=== PATIENT | female | born 1950 | race Caucasian/White ===

== ENCOUNTER 2017-04-30 19:58 | Emergency (ER) | payer MEDICARE, BC ==
--- NOTE | 2017-04-30 20:27 | Emergency Department Record ---
History of Present Illness - General Chief Complaint: Back Pain/Injury Stated Complaint: BACK PAIN Time Seen by Provider: 04/30/17 20:12 Source: Patient, Family, EMS Mode of Arrival: Stretcher Limitations: No limitations - History of Present Illness Initial Comments: 67 yo female presents by EMS. She fell off the toilet on Tuesday and has not been able to get up since that time. She has been on the floor since that time. The was able initially drag her to the bedroom then eventually to the living room floor where she remained. She has been on the living room floor since that time. She initially was in too much pain now she is too weak as well. She has been urinating where she lays. She has been confused at times. She normally functions on her own, drives. She occasionally uses a cane for support. Complaint: Back pain, Fall -: Days(s) (4) Place: Home Radiation: None Severity: Severe Quality: Aching Consistency: Constant - Related Data Previous Rx's Medication Instructions Recorded Mupirocin [Bactroban] 1 apply TP TID #22 gm 09/23/14 Tetracycline HCl 500 mg PO TID #30 capsule 09/30/14 Doxycycline Hyclate [Vibramycin] 100 mg PO BID #20 capsule 10/01/14 Allergies Allergy/AdvReac Type Severity Reaction Status Date / Time Carbapenems Allergy Unknown RASH Verified 04/30/17 23:00 Carbonic Anhydrase Inhibitors Allergy Unknown RASH Verified 04/30/17 23:00 Cephalosporins Allergy Unknown RASH Verified 04/30/17 23:00 Penicillins Allergy Unknown HIVES Verified 04/30/17 23:00 Sulfa (Sulfonamide Allergy Unknown HIVES Verified 04/30/17 23:00 Antibiotics) sulfamethoxazole Allergy Unknown HIVES Verified 04/30/17 23:00 Sulfonylureas Allergy Unknown HIVES Verified 04/30/17 23:00 Thiazides Allergy Unknown HIVES Verified 04/30/17 23:00 trimethoprim Allergy Unknown HIVES Verified 04/30/17 23:00 acetaminophen [From Vicodin] Allergy HIVES Verified 04/30/17 23:00 codeine Allergy HIVES Verified 04/30/17 23:00 hydrocodone bitartrate Allergy HIVES Verified 04/30/17 23:00 [From Vicodin] Review of Systems Constitutional: Reports: Malaise, Weakness. Denies: Chills, Fever Eyes: Denies: Eye discharge, Eye pain, Photophobia, Vision change ENT: Denies: Congestion, Throat pain Respiratory: Denies: Cough, Dyspnea, Hemoptysis, Stridor, Wheezes Cardiovascular: Denies: Chest pain, Palpitations, Syncope Endocrine: Reports: Fatigue. Denies: Polydipsia, Polyuria Gastrointestinal: Denies: Abdominal pain, Diarrhea, Nausea, Vomiting Genitourinary: Reports: Incontinence. Denies: Dysuria, Frequency, Urgency Musculoskeletal: Reports: Arthralgia, Back pain, Myalgia. Denies: Joint swelling, Neck pain Skin: Reports: Bruising. Denies: Change in color, Rash Neurological: Reports: Abnormal gait (unable), Weakness. Denies: Headache Psychiatric: Denies: Anxiety Hematological/Lymphatic: Denies: Blood Clots, Easy bleeding, Easy bruising, Swollen glands Physical Exam - General General Appearance: Alert, Cooperative, No acute distress, Other (alert but slower to answer questions. no overt confusion. some memory lapses of the events) Limitations: No limitations - Head Head exam: Atraumatic, Normocephalic, Normal inspection Head exam detail: negative: Abrasion, Contusion, Hematoma, Laceration - Eye Eye exam: Normal appearance, PERRL. negative: Conjunctival injection, Scleral icterus - ENT ENT exam: Normal exam, Mucous membranes dry Ear exam: Normal external inspection Nasal Exam: Normal inspection Mouth exam: Normal external inspection Teeth exam: Normal inspection Throat exam: Normal inspection - Neck Neck exam: Normal inspection, Full ROM. negative: Tenderness - Respiratory Respiratory exam: Normal lung sounds bilaterally. negative: Respiratory distress, Rhonchi, Stridor, Wheezes - Cardiovascular Cardiovascular Exam: Regular rate, Normal rhythm, Normal heart sounds Peripheral Pulses: 2+: Radial (R), Radial (L) - GI/Abdominal GI/Abdominal exam: Soft. negative: Guarding, Rigid, Tenderness - Rectal Rectal exam: Deferred - exam: Deferred - Extremities Extremities exam: Normal inspection, Full ROM (global weakness), Normal capillary refill. negative: Calf tenderness, Joint swelling, Pedal edema - Back Back exam: Reports: Tenderness, Vertebral tenderness. Denies: Normal inspection , CVA tenderness (R), CVA tenderness (L), Muscle spasm, Paraspinal tenderness Image of Body Front/Back: 1 - bruising, tender - Neurological Neurological exam: Alert, CN II-XII intact, Oriented X3, Reflexes normal, Other (globally weak, unable to sit up, no PND of the upper extremities,, intact conductor/engineer , lower legs overcome gravity. clear speech, symmentric face.). negative: Altered, Motor sensory deficit, Normal gait (unable to sit up on her own too weak) - Psychiatric Psychiatric exam: Depressed. negative: Agitated, Anxious, Manic, Normal affect , Normal mood - Skin Skin exam: Other (bruising) Course - Reevaluation(s) Reevaluation #1: 04/30/17 20:52 EKG Atrial Fibrillation 129, intervals QTc 480, Dodge L, ST no acute changes. No history of AFIB. Prior EKG was NSR. 200504/30/17 20:55 04/30/17 22:02 The CBC was reviewed. No acute changes The CMP was reviewed. BUN is 26 CR is 1.3, GFR 43, Glucose 213, CK is 365 MB 11 Troponin is indeterminate at .033 UA spec gravity 1.030, protein and ketones. No infection 04/30/17 22:04 Current HR 114 Continue IV hydration. HR elevation improving with fluids. 04/30/17 23:20 The HCT and the Pelvic CT are negative Given the new onset afib she will be rate controlled and anticoagulated with no CT evidence for stroke and no physical examination findings for stroke. The patient requests [facility] for transfer 04/30/17 23:46 I GENA Kirkland. We were interrupted by an SALES INTERN on her end and will resume the transfer when she is available. 05/01/17 00:30 Dr Kirkland called back and accepts the patient Bed control NOW informs us there is not available bed at [facility] and they can not accept her. This was discussed with the patient. She agrees with contacting [facility] for transfer and care. 05/01/17 01:04 Kaiden Felder of [facility]. She accepts the patient for transfer and further case. 05/01/17 02:42 EMS in the ED for transfer. Stable for transfer. Medical Decision Making - Lab Data Result diagrams: 04/30/17 20:45 04/30/17 20:45 Disposition Disposition: Transfer Clinical Impression: Fall, Atrial fibrillation, Weakness, Dehydration Disposition: Acute Care Hospital Transfer Transfer To: [facility] Reason For Transfer: New Onset afib, fall Accepting Physician: Bradford Time Discussed w/Accepting Physician: 01:05 Condition: (2) Stable Forms: Patient Portal Access Time of Disposition: 01:05 Quality - Quality Measures Quality Measures: N/A - Blood Pressure Screening Does Patient Have Any of the Following: Active Dx of HTN Blood Pressure Classification: Hypertensive Reading Systolic Measurement: 155 Diastolic Measurement: 103 Screening for High Blood Pressure: Patient Exclusion, Hx of HTN [G9744]
[2017-04-30] MEDS ORDERED: 0.9 % SODIUM CHLORIDE 1,000 ML BAG IV ONE (20:48)
[2017-04-30 20:59] LABS: BASO % 0.2 % (0-6); EOS % 2.6 % (0-6); GRAN % 75.3 % (47-80); HEMATOCRIT 45.4 % (35.0-47.0); HEMOGLOBIN 15.6 gm/dl (11.6-16.0); MEAN CELL VOLUME 85.3 fl (81-97); MEAN CORPUSCULAR HEMOGLOBIN 29.3 pg (27-33); MEAN CORPUSCULAR HGB CONC 34.4 g/dl (32-36); MEAN PLATELET VOLUME 9.6 fl (7.4-10.4); MONO % 10.9 % (0-9); PLATELET COUNT 363 K/uL (130-400); RED BLOOD COUNT 5.32 M/uL (3.80-5.40); RED CELL DISTRIBUTION WIDTH 14.5 % (11.5-14.5); WHITE BLOOD COUNT W/O DIFF 11.9 K/uL (4.2-12.2)
[2017-04-30 21:08] LABS: BILIRUBIN,TOTAL 0.6 mg/dL (0.2-1.0); CREATININE 1.3 mg/dL (0.5-0.9); TOTAL PROTEIN 7.4 g/dL (6.6-8.7)
[2017-04-30 21:13] LABS: ALB/GLOB RATIO 1.1 (1.1-1.8); ALBUMIN 3.9 g/dL (4.0-5.0)
[2017-04-30 21:16] LABS: CKMB 11.9 ng/mL (<3.77)
[2017-04-30 21:24] LABS: THYROID STIMULATING HORMONE 2.44 uIU/mL (0.270-4.20)
[2017-04-30 21:24] LABS: URINE APPEARANCE CLEAR; URINE BILIRUBIN NEGATIVE (NEGATIVE); URINE BLOOD MODERATE (NEGATIVE); URINE COLOR YELLOW; URINE KETONE NEGATIVE (NEGATIVE); URINE LEUKOCYTE ESTERASE NEGATIVE (NEGATIVE); URINE NITRITE NEGATIVE (NEGATIVE); URINE UROBILINOGEN 0.2 E.U./dL (0.20 - 1.00)
[2017-04-30 21:45] LABS: URINE BACTERIA TRACE; URINE EPITHELIAL CELLS 0 - 2 (FEW); URINE WBC 0 - 2 (0-2/hpf)
[2017-04-30] MEDS ORDERED: 0.9 % SODIUM CHLORIDE 1000ML 1,000 ML IV ONE (23:07)
[2017-04-30] MEDS ORDERED: DILTIAZEM HCL 125 MG in 0.9 % SODIUM CHLORIDE 100ML 100 ML IV SCH (23:15)
[2017-04-30] MEDS ORDERED: HEPARIN SODIUM/D5W 25,000 UNITS/500 ML BAG IV SCH (23:45)
[2017-05-01 16:19] LABS: CKMB RELATIVE INDEX 3.3 % (0-4)
--- NOTE | 2017-05-02 19:39 | CT SCAN REPORT ---
EXAM: CT SCAN HEAD WO CONTRAST HISTORY: MULTIPLE RECENT FALLS. MIDLINE LOWER BACK PAIN. TECHNIQUE: Routine noncontrast CT examination of the head. COMPARISON: None. FINDINGS: The subarachnoid spaces are mildly dilated and the ventricles are near the upper limits of normal in size. Moderate diffuse periventricular and subcortical white matter lucencies are scattered within each cerebral hemisphere , relatively symmetrically distributed. These are nonspecific but likely areas of chronic small vessel ischemia. No abnormal extraaxial fluid collection is seen. No skull fracture is identified, nor is there cephalohematoma. The visualized paranasal sinuses and mastoid air cells are clear. The orbits as visualized are unremarkable. There is atherosclerotic calcification of the distal left vertebral artery. IMPRESSION: 1. NO CT EVIDENCE OF ACUTE MAJOR VESSEL INFARCT, INTRACRANIAL HEMORRHAGE, MASS , NOR SKULL FRACTURE. 2. GENERALIZED ATROPHY. 3. MODERATE, RELATIVELY DIFFUSE PERIVENTRICULAR AND SUBCORTICAL WHITE MATTER LUCENCIES IN EACH CEREBRAL HEMISPHERE. THESE ARE CONSISTENT WITH CHRONIC SMALL VESSEL ISCHEMIA. JOB NUMBER: [id number] MTDD
--- NOTE | 2017-05-02 19:52 | CT SCAN REPORT ---
EXAM: CT SCAN PELVIS WO CONTRAST HISTORY: MULTIPLE FALLS. INABILITY TO STAND. TECHNIQUE: Thin-collimation helical CT examination of the pelvis is performed without oral or intravenous contrast administration. COMPARISON: CT abdomen and pelvis with contrast dated 02/04/2008. FINDINGS: Diffuse osteopenia mildly limits evaluation. No definite acute fracture nor dislocation identified. Total right hip arthroplasty changes demonstrated with the prosthetic components, to the extent visualized, appearing well seated. There are degenerative changes of the sacroiliac joints and moderate degenerative changes of the lower lumbar spine. No abnormal subluxation. There are cysts suggested arising from the lower pole of the right kidney, incompletely imaged, with the largest measuring 2.7 cm. Additionally, there is a nodular structure incompletely imaged, also possibly arising from the lower pole of the right kidney having a density of 39 Hounsfield units. To the extent visualized this measures 13 mm and while likely a proteinaceous cyst, a solid lesion would be difficult to exclude. There are cystic structures within the adnexa. That on the right measures 3.7 x 3.9 cm and that on the left measures 2.4 x 3.8 cm. These cannot be further characterized and while likely benign cysts, cystic neoplasm cannot be excluded. There is likely a partially calcified fibroid in the anterior uterine fundus/ body. The urinary bladder is contracted around a Abarca catheter limiting its evaluation. There is diverticulosis of the visualized left colon without diverticulitis. IMPRESSION: 1. NO DEFINITE ACUTE FRACTURE NOR DISLOCATION. 2. TOTAL RIGHT HIP ARTHROPLASTY CHANGES. 3. URINARY BLADDER CONTRACTED AROUND A ABARCA CATHETER. 4. DEGENERATIVE CHANGES SCATTERED WITHIN THE LOWER LUMBAR SPINE AND SACROILIAC JOINTS, MOST PRONOUNCED AT THE LUMBOSACRAL JUNCTION, WHERE THEY ARE MODERATE IN DEGREE. 5. SINGLE CYSTIC STRUCTURES IN EACH ADNEXA, DISCUSSED ABOVE. 6. DIVERTICULOSIS OF THE DISTAL COLON WITHOUT EVIDENCE OF DIVERTICULITIS. 7. SEVERAL SMALL MASSES LIKELY ARISING FROM THE LOWER POLE OF THE RIGHT KIDNEY , INCOMPLETELY IMAGED. THE MAJORITY OF THESE ARE LIKELY CYSTS THOUGH THERE IS ONE STRUCTURE HAVING DENSITY GREATER THAN SIMPLE FLUID. A SMALL SOLID MASS WOULD BE DIFFICULT TO EXCLUDE THOUGH PROTEINACEOUS CYST IS MORE LIKELY. JOB NUMBER: [id number] [facility]
== END 2017-05-01 02:45 | disposition short-term general hospital (02) ==
LOC: ER 19:58
DX: I48.91 Unspecified atrial fibrillation (principal); R55 Syncope and collapse; E86.0 Dehydration; R53.1 Weakness; E11.9 Type 2 diabetes mellitus without complications; R41.0 Disorientation, unspecified; I10 Essential (primary) hypertension; Z79.84 Long term (current) use of oral hypoglycemic drugs; G89.11 Acute pain due to trauma; M54.5 Low back pain; W18.11XA Fall from or off toilet without subsequent striking against object, initial encounter; Y92.002 Bathroom of unspecified non-institutional (private) residence as the place of occurrence of the external cause
CPT/HCPCS: 70450; 72192; 80053; 81001; 82550; 82553; 84443; 84484; 85025; 93005; 93010; 96365; 96366; 96375; 99285; J7030

== ENCOUNTER 2017-09-13 14:00 | Emergency (ER) | payer MEDICARE ==
--- NOTE | 2017-09-13 14:09 | Emergency Department Record ---
History of Present Illness - General Stated Complaint: AFIB,SWOLLEN LEGS Time Seen by Provider: 09/13/17 14:01 Source: Patient, Family Mode of Arrival: Ambulatory Limitations: Altered mental status - History of Present Illness Initial Comments: 67 yo female presents with progressive weakness and confusion. She was evaluated in April after a fall and being on the floor for 4 days. She was found to be in atrial fibrillation at that time. She was initially transferred to [facility] and discharged to medical rehab. In the last few months her health has continued to decline. She has had increasing weakness, periods of confusion, leg swelling. She has seen her Physician Assistance once in follow up since the admission. Her activity is now limited to getting up out of a chair only. She is frequently confused about the day, her medications, or her circumstances. She has not seen a natural resources manager since [place]. MD Complaint: Altered mental status -: Month(s) Severity: Moderate Consistency: Constant Context: Change in medication, History of similar presentation Associated Symptoms: Other - [place] Coma Scale Eye Response: (4) Open spontaneously Motor Response: (6) Obeys commands - Related Data Home Medications Medication Instructions Recorded Confirmed Last Taken Apixaban [Eliquis] 5 mg PO DAILY 09/13/17 09/13/17 Unknown Fluoxetine HCl 20 mg PO DAILY 09/13/17 09/13/17 Unknown Hydroxyzine HCl 25 mg PO DAILY 09/13/17 09/13/17 Unknown Losartan Potassium 25 mg PO DAILY 09/13/17 09/13/17 Unknown Pantoprazole Sodium [Protonix] 40 mg PO DAILY 09/13/17 09/13/17 Unknown Sitagliptin Phos/Metformin HCl 50 mg PO DAILY 09/13/17 09/13/17 Unknown [Janumet 50-500 mg Tablet] Zolpidem Tartrate 5 mg PO DAILY 09/13/17 09/13/17 Unknown Previous Rx's Medication Instructions Recorded Clindamycin HCl 300 mg PO QID #28 capsule 09/13/17 Allergies Allergy/AdvReac Type Severity Reaction Status Date / Time Carbapenems Allergy Unknown RASH Verified 04/30/17 23:00 Carbonic Anhydrase Inhibitors Allergy Unknown RASH Verified 04/30/17 23:00 Cephalosporins Allergy Unknown RASH Verified 04/30/17 23:00 Penicillins Allergy Unknown HIVES Verified 04/30/17 23:00 Sulfa (Sulfonamide Allergy Unknown HIVES Verified 04/30/17 23:00 Antibiotics) sulfamethoxazole Allergy Unknown HIVES Verified 04/30/17 23:00 Sulfonylureas Allergy Unknown HIVES Verified 04/30/17 23:00 Thiazides Allergy Unknown HIVES Verified 04/30/17 23:00 trimethoprim Allergy Unknown HIVES Verified 04/30/17 23:00 acetaminophen [From Vicodin] Allergy HIVES Verified 04/30/17 23:00 codeine Allergy HIVES Verified 04/30/17 23:00 hydrocodone bitartrate Allergy HIVES Verified 04/30/17 23:00 [From Vicodin] Review of Systems Constitutional: Reports: Malaise, Weakness. Denies: Chills, Fever Eyes: Denies: Eye discharge, Eye pain, Photophobia, Vision change ENT: Denies: Congestion, Throat pain Respiratory: Denies: Cough, Dyspnea Cardiovascular: Reports: Dyspnea on exertion, Edema, Palpitations. Denies: Chest pain, Syncope Endocrine: Reports: Fatigue Gastrointestinal: Denies: Abdominal pain, Diarrhea, Nausea, Vomiting Musculoskeletal: Denies: Arthralgia, Gout, Joint swelling, Myalgia, Neck pain Skin: Denies: Bruising, Change in color, Rash Neurological: Reports: Weakness Psychiatric: Reports: Depression Hematological/Lymphatic: Denies: Easy bleeding, Easy bruising, Swollen glands Past Medical History - SOCIAL HISTORY Smoking Status: Never smoker Drug Use: None - RESPIRATORY Hx Respiratory Disorders: Yes Hx Asthma: Yes - CARDIOVASCULAR Hx Cardio Disorders: Yes Hx Hypertension: Yes Comment:: high cholesterol - NEURO Hx Neuro Disorders: No - GI Hx GI Disorders: Yes Hx Reflux: Yes - Hx Genitourinary Disorders: Yes Hx UTI: Yes - ENDOCRINE Hx Endocrine Disorders: Yes Hx Diabetes: Yes - PSYCH Hx Psych Problems: Yes Hx Anxiety: Yes Hx Depression: Yes - HEMATOLOGY/ONCOLOGY Hx Hematology/Oncology Disorders: No Physical Exam - General General Appearance: Alert, Oriented x3, Cooperative, No acute distress, Other ( Oriented without confusion at this time.) Limitations: No limitations - Head Head exam: Atraumatic, Normocephalic, Normal inspection - Eye Eye exam: Normal appearance, PERRL. negative: Conjunctival injection, Scleral icterus - ENT ENT exam: Normal exam Ear exam: Normal external inspection Nasal Exam: Normal inspection Mouth exam: Normal external inspection - Neck Neck exam: Normal inspection, Full ROM - Respiratory Respiratory exam: Normal lung sounds bilaterally. negative: Accessory muscle use, Respiratory distress, Rhonchi, Stridor, Wheezes - Cardiovascular Cardiovascular Exam: Regular rate, Normal rhythm, Normal heart sounds Peripheral Pulses: 2+: Radial (R), Radial (L) - GI/Abdominal GI/Abdominal exam: Soft. negative: Distended, Rebound, Rigid, Tenderness - Rectal Rectal exam: Deferred - exam: Deferred - Extremities Extremities exam: Normal inspection, Normal capillary refill, Other (few scabs with redness to he RLE) - Back Back exam: Reports: Normal inspection, Full ROM. Denies: Muscle spasm, Rash noted, Tenderness - Neurological Neurological exam: Alert, CN II-XII intact, Normal gait, Oriented X3. negative : Altered, Motor sensory deficit - Psychiatric Psychiatric exam: Normal affect, Normal mood - Skin Skin exam: Erythema Course - Reevaluation(s) Reevaluation #1: EKG #1: 1412 Rate: 58 Rhythm: Sinus [place]: Left Intervals: Normal ST segments: No acute changes, poor R wave progression 09/13/17 14:22 09/13/17 14:29 The CBC was reviewed. No acute changes. 09/13/17 15:36 The labs were reviewed CR is 1.5 with prior of 1.3 No other acute changes The HCT was reviewed No acute changes. Chronic changes. TSH is normal 09/13/17 16:19 The UA is normal Case Management is in the ED to assist in arranging resumption of physical therapy. The patient seems to mainly have a slow progressive loss of strength and function. She had done well inpatient rehab but steadily declined in the outpatient once this was stopped. She is fully oriented, alert, and unaltered during this ED visit. 09/13/17 16:33 The patient and family are comfortable with setting up outpatient physical therapy at [facility]. The patient request a [facility] natural resources manager. They were provided Dr Colin's contact information as he is in [place]. Medical Decision Making - Lab Data Result diagrams: 09/13/17 14:15 09/13/17 14:15 Disposition Disposition: Discharge Clinical Impression: Physical deconditioning Cellulitis Qualifiers: Site of cellulitis: extremity Laterality: right Disposition: Home, Self-Care Condition: (1) Good Instructions: Weakness (ED), Cellulitis (ED) Additional Instructions: Take the prescriptions provided today as directed. Call your family doctor. Call to schedule the next available appointment for a recheck. You will need close follow up with a family doctor over the next few weeks to months Return to ED if your symptoms worsen or if you have any new concerns. Review the final Emergency Record and test results with your doctor on follow up Prescriptions: Clindamycin HCl 300 mg PO QID #28 capsule Referrals: ANAMARIA CENTENO M.D. [MEDICAL DOCTOR] - Time of Disposition: 16:43 Quality - Quality Measures Quality Measures: N/A - Blood Pressure Screening Does Patient Have Any of the Following: Active Dx of HTN Blood Pressure Classification: Pre-Hypertensive BP Reading Systolic Measurement: 147 Diastolic Measurement: 89 Screening for High Blood Pressure: Patient Exclusion, Hx of HTN [G9744]
[2017-09-13 14:24] LABS: BASO % 0.2 % (0-6); EOS % 3.8 % (0-6); GRAN % 69.9 % (47-80); HEMOGLOBIN 13.4 gm/dl (11.6-16.0); LYMPH % 14.1 % (16-45); MEAN CELL VOLUME 81.8 fl (81-97); MEAN CORPUSCULAR HEMOGLOBIN 26.7 pg (27-33); MEAN CORPUSCULAR HGB CONC 32.7 g/dl (32-36); MEAN PLATELET VOLUME 9.2 fl (7.4-10.4); PLATELET COUNT 289 K/uL (130-400); RED BLOOD COUNT 5.01 M/uL (3.80-5.40); RED CELL DISTRIBUTION WIDTH 16.8 % (11.5-14.5); WHITE BLOOD COUNT W/O DIFF 6.5 K/uL (4.2-12.2)
[2017-09-13] MEDS ORDERED: SODIUM CHLORIDE 0.9% 500 ML IV ONE (14:45)
[2017-09-13 14:48] LABS: BLOOD UREA NITROGEN 17 mg/dL (8-23); CREATININE 1.5 mg/dL (0.5-0.9); EST GLOMERULAR FILTRATION RATE 37 mL/min; TOTAL PROTEIN 7.4 g/dL (6.6-8.7)
[2017-09-13 14:50] LABS: GLUCOSE,RANDOM 176 mg/dL (74-109)
[2017-09-13 14:53] LABS: ALB/GLOB RATIO 1.2 (1.1-1.8); ALBUMIN 4.1 g/dL (4.0-5.0); ALKALINE PHOSPHATASE 106 U/L (35-104); ALT/SGPT 16 U/L (<33); AST/SGOT 20 U/L (10.0-35.0)
[2017-09-13 15:05] LABS: THYROID STIMULATING HORMONE 1.28 uIU/mL (0.270-4.20)
[2017-09-13 16:01] LABS: URINE APPEARANCE CLEAR; URINE BILIRUBIN NEGATIVE (NEGATIVE); URINE BLOOD NEGATIVE (NEGATIVE); URINE COLOR YELLOW; URINE GLUCOSE (UA) NEGATIVE (NEGATIVE); URINE KETONE NEGATIVE (NEGATIVE); URINE LEUKOCYTE ESTERASE NEGATIVE (NEGATIVE); URINE NITRITE NEGATIVE (NEGATIVE); URINE PROTEIN NEGATIVE (NEGATIVE); URINE UROBILINOGEN 0.2 E.U./dL (0.20 - 1.00)
--- NOTE | 2017-09-14 09:23 | CT SCAN REPORT ---
EXAM: CT OF THE HEAD WITHOUT CONTRAST HISTORY: WORSENING CONFUSION. ATRIAL FIBRILLATION. TECHNIQUE: Routine noncontrast CT examination of the head was performed. Comparison: CT of the head without contrast dated 04/30/17. FINDINGS: There is minor age related atrophy. The ventricles are not enlarged. Moderate periventricular and subcortical white matter lucencies are again noted scattered in each cerebral hemisphere relatively symmetrically. This pattern is unchanged. These are consistent with chronic small vessel ischemia. No new area of abnormally increased or decreased attenuation is noted throughout the brain substance. No new abnormal extraaxial fluid collection is seen. There is atherosclerosis of the distal left vertebral artery and distal internal carotid arteries, stable. No asymmetric density of the middle cerebral arteries. There is opacification of a single posterior right ethmoid air cell redemonstrated likely inflammatory. The visualized paranasal sinuses and mastoid air cells are otherwise clear. Prominent cerumen is suggested within the right external auditory canal. The orbits as visualized are unremarkable. There are likely tiny intraparotid lymph nodes bilaterally, stable. IMPRESSION: 1. NO CT EVIDENCE OF ACUTE MAJOR VESSEL INFARCT, INTRACRANIAL HEMORRHAGE, NOR MASS WITHOUT CHANGE IN APPEARANCE OF THE BRAIN SINCE 04/30/17. 2. AGE RELATED ATROPHY. MODERATE WHITE MATTER LUCENCIES SCATTERED IN EACH CEREBRAL HEMISPHERE REDEMONSTRATED CONSISTENT WITH CHRONIC SMALL VESSEL ISCHEMIA. 3. OPACIFICATION OF A SINGLE POSTERIOR RIGHT ETHMOID AIR CELL. [facility]BER: [id number] [facility]
== END 2017-09-13 17:08 | disposition home or self-care (01) ==
LOC: ER 14:00
DX: L03.115 Cellulitis of right lower limb (principal); R53.81 Other malaise; R41.82 Altered mental status, unspecified; I10 Essential (primary) hypertension; E11.9 Type 2 diabetes mellitus without complications; I48.91 Unspecified atrial fibrillation; Z79.01 Long term (current) use of anticoagulants; Z79.84 Long term (current) use of oral hypoglycemic drugs
CPT/HCPCS: 70450; 80053; 81003; 83735; 83880; 84443; 84484; 85025; 93005; 93010; 99284

== ENCOUNTER 2017-09-22 16:55 | Observation (INO) | payer MEDICARE ==
--- NOTE | 2017-09-22 17:12 | Emergency Department Record ---
History of Present Illness - General Chief complaint: Weakness Stated complaint: WEAK,CONFUSION,A-FIB Time Seen by Provider: 09/22/17 17:09 Source: Patient, Family Mode of Arrival: Wheelchair Limitations: Other - History of Present Illness Initial comments: 67 yo female presents with generalized weakness that has persisted. She has gradually developed these symptoms over several months. She had atrial fibrillation in April with weakness and dehydration. She was admitted to the hospital and spent time in medical rehab. She had improved and eventually discharged home. She was doing well with ambulation. Over time this gradually reversed and she has declined with strength and activity. She is always weak, fatigued, and has had falls. She was seen in the ED on 09/13. Social work was contacted. She had home physical therapy requested. This has not started in the last 10 days and she has not seen her PCP in months. No fever. She did have a mild fall without any injury Tuesday. No headaches, no focal weakness, no vomiting. She states she is eating and drinking. MD Complaint: Generalized weakness -: Month(s) Location: Generalized Severity: Moderate Quality: Other Consistency: Constant Improves with: None Worsens with: Movement Context: Other Associated Symptoms: Other - [place] Coma Scale Eye Response: (4) Open spontaneously Motor Response: (6) Obeys commands Verbal Response: (5) Oriented Krista Total: 15 - Related Data Home Medications Medication Instructions Recorded Confirmed Last Taken Cyclobenzaprine HCl [Flexeril] 10 mg PO ASDIR PRN 09/22/17 09/22/17 Unknown Ferrous Sulfate [Feosol] 65 mg PO DAILY 09/22/17 09/22/17 Unknown Losartan Potassium 25 mg PO DAILY 09/22/17 09/22/17 Unknown Allergies Allergy/AdvReac Type Severity Reaction Status Date / Time Carbapenems Allergy Unknown RASH Verified 04/30/17 23:00 Carbonic Anhydrase Inhibitors Allergy Unknown RASH Verified 04/30/17 23:00 Cephalosporins Allergy Unknown RASH Verified 04/30/17 23:00 Penicillins Allergy Unknown HIVES Verified 04/30/17 23:00 Sulfa (Sulfonamide Allergy Unknown HIVES Verified 04/30/17 23:00 Antibiotics) sulfamethoxazole Allergy Unknown HIVES Verified 04/30/17 23:00 Sulfonylureas Allergy Unknown HIVES Verified 04/30/17 23:00 Thiazides Allergy Unknown HIVES Verified 04/30/17 23:00 trimethoprim Allergy Unknown HIVES Verified 04/30/17 23:00 acetaminophen [From Vicodin] Allergy HIVES Verified 04/30/17 23:00 codeine Allergy HIVES Verified 04/30/17 23:00 hydrocodone bitartrate Allergy HIVES Verified 04/30/17 23:00 [From Vicodin] Review of Systems Constitutional: Reports: Malaise, Weakness. Denies: Chills, Fever Eyes: Denies: Eye discharge, Eye pain, Photophobia, Vision change ENT: Denies: Congestion, Throat pain Respiratory: Denies: Cough, Dyspnea Cardiovascular: Denies: Chest pain, Palpitations, Syncope Endocrine: Reports: Fatigue. Denies: Polydipsia, Polyuria Gastrointestinal: Denies: Abdominal pain, Diarrhea, Nausea, Vomiting Genitourinary: Denies: Dysuria, Urgency Musculoskeletal: Denies: Arthralgia, Back pain, Joint swelling, Myalgia Skin: Denies: Bruising, Change in color, Rash Neurological: Reports: Abnormal gait, Confusion (At times falles asleep. At times looses track of conversation topic. She is fully alert and oriented at this time.), Weakness. Denies: Headache, Tingling Psychiatric: Denies: Anxiety Hematological/Lymphatic: Denies: Blood Clots, Easy bleeding, Easy bruising, Swollen glands Past Medical History - SOCIAL HISTORY Smoking Status: Never smoker Drug Use: None - RESPIRATORY Hx Respiratory Disorders: Yes Hx Asthma: Yes - CARDIOVASCULAR Hx Cardio Disorders: Yes Hx Hypertension: Yes Comment:: high cholesterol - NEURO Hx Neuro Disorders: No - GI Hx GI Disorders: Yes Hx Reflux: Yes - Hx Genitourinary Disorders: Yes Hx UTI: Yes - ENDOCRINE Hx Endocrine Disorders: Yes Hx Diabetes: Yes - PSYCH Hx Psych Problems: Yes Hx Anxiety: Yes Hx Depression: Yes - HEMATOLOGY/ONCOLOGY Hx Hematology/Oncology Disorders: No Physical Exam - General General Appearance: Alert, Oriented x3, Cooperative, No acute distress Limitations: No limitations - Head Head exam: Atraumatic, Normocephalic, Normal inspection Head exam detail: negative: Abrasion, Contusion, General tenderness, Hematoma, Laceration - Eye Eye exam: Normal appearance, PERRL. negative: Conjunctival injection, Scleral icterus - ENT ENT exam: Normal exam, Mucous membranes moist Ear exam: Normal external inspection Nasal Exam: Normal inspection Mouth exam: Normal external inspection - Neck Neck exam: Normal inspection - Respiratory Respiratory exam: Normal lung sounds bilaterally. negative: Respiratory distress - Cardiovascular Cardiovascular Exam: Regular rate, Normal rhythm, Normal heart sounds Peripheral Pulses: 2+: Radial (R), Radial (L) - GI/Abdominal GI/Abdominal exam: Soft. negative: Tenderness - Rectal Rectal exam: Deferred - exam: Deferred - Extremities Extremities exam: Normal inspection, Full ROM, Normal capillary refill. negative: Calf tenderness, Joint swelling, Tenderness - Back Back exam: Denies: CVA tenderness (R), CVA tenderness (L) - Neurological Neurological exam: Abnormal gait, Alert, CN II-XII intact, Oriented X3, Other ( She is alert, no current confusion, no focal weakness). negative: Altered, Motor sensory deficit, Normal gait - Psychiatric Psychiatric exam: Depressed, Flat affect. negative: Agitated, Anxious - Skin Skin exam: Dry, Intact, Normal color, Warm Course - Reevaluation(s) Reevaluation #1: EKG #1 1710 Rate 65 Rhythm Sinus Rena Lara Left Intervals Normal ST segments Normal No changes since 09/13/17 09/22/17 17:16 The vitals were reviewed No fever, tachycardia, or hypoxia. Mild elevation of BP 09/22/17 17:28 EMR reviewed. HCT on the was negative. No acute changes or head injury since then. They report continued physical decline. No PT was arranged and she has not seen her PCP. 09/22/17 17:34 The CBC was reviewed. No acute changes 09/22/17 17:34 09/22/17 18:09 CR is 1.6 Given her deconditioning, weakness, falls, I recommend admission, PT consult, IVF for dehydration, carotid dopplers, hold any medications that can cause AMS, sedation, weakness. 09/22/17 18:25 I discussed the case with Sanna Edwards. She will admit for further work up. Medical Decision Making - Lab Data Result diagrams: 09/22/17 17:15 09/22/17 17:15 Disposition Disposition: Admit Clinical Impression: Physical deconditioning, Confusion Disposition: Still a Patient at [facility] Decision to Admit: Admit from ER Decision to Admit Date: 09/22/17 Decision to Admit Time: 18:26 Condition: (2) Stable Forms: Patient Portal Access Time of Disposition: 18:55 Quality - Quality Measures Quality Measures: N/A - Blood Pressure Screening Does Patient Have Any of the Following: No Blood Pressure Classification: Pre-Hypertensive BP Reading Systolic Measurement: 134 Diastolic Measurement: 73 Screening for High Blood Pressure: < Pre-Hypertensive BP, F/U Documented > [ [id number]] Pre-Hypertensive Follow-up Interventions: Referral to alternative/primary care provider.
[2017-09-22 17:29] LABS: BASO % 0.3 % (0-6); GRAN % 68.5 % (47-80); HEMOGLOBIN 13.8 gm/dl (11.6-16.0); LYMPH % 15.8 % (16-45); MEAN CELL VOLUME 80.4 fl (81-97); MEAN CORPUSCULAR HEMOGLOBIN 25.8 pg (27-33); MEAN CORPUSCULAR HGB CONC 32.1 g/dl (32-36); MONO % 11.4 % (0-9); PLATELET COUNT 293 K/uL (130-400); RED BLOOD COUNT 5.35 M/uL (3.80-5.40); RED CELL DISTRIBUTION WIDTH 17.3 % (11.5-14.5); URINE APPEARANCE CLEAR; URINE BILIRUBIN NEGATIVE (NEGATIVE); URINE BLOOD TRACE-I (NEGATIVE); URINE COLOR YELLOW; URINE GLUCOSE (UA) NEGATIVE (NEGATIVE); URINE KETONE NEGATIVE (NEGATIVE); URINE LEUKOCYTE ESTERASE SMALL (NEGATIVE); URINE NITRITE NEGATIVE (NEGATIVE); URINE PROTEIN NEGATIVE (NEGATIVE); URINE UROBILINOGEN 0.2 E.U./dL (0.20 - 1.00); WHITE BLOOD COUNT W/O DIFF 6.2 K/uL (4.2-12.2)
[2017-09-22 17:43] LABS: BLOOD UREA NITROGEN 23 mg/dL (8-23); CREATININE 1.6 mg/dL (0.5-0.9); EST GLOMERULAR FILTRATION RATE 34 mL/min
[2017-09-22 17:44] LABS: TOTAL PROTEIN 7.5 g/dL (6.6-8.7)
[2017-09-22 17:45] LABS: URINE BACTERIA NONE SEEN; URINE EPITHELIAL CELLS 0 - 2 (FEW); URINE RBC 0 - 2 (NONE SEEN)
[2017-09-22 17:46] LABS: GLUCOSE,RANDOM 140 mg/dL (74-109)
[2017-09-22 17:48] LABS: ALT/SGPT 18 U/L (<33); AST/SGOT 24 U/L (10.0-35.0)
[2017-09-22 17:49] LABS: ALB/GLOB RATIO 1.3 (1.1-1.8); ALBUMIN 4.2 g/dL (4.0-5.0); ALKALINE PHOSPHATASE 95 U/L (35-104)
[2017-09-22 18:00] LABS: THYROID STIMULATING HORMONE 1.45 uIU/mL (0.270-4.20)
[2017-09-22] MEDS ORDERED: 0.9 % SODIUM CHLORIDE 1,000 ML BAG IV ONE (18:48)
[2017-09-22] MEDS ORDERED: ACETAMINOPHEN 500 MG TABLET PO PRN (20:18)
[2017-09-22] MEDS ORDERED: 0.9 % SODIUM CHLORIDE 1000ML 1,000 ML IV PRN (20:18)
[2017-09-22] MEDS ORDERED: PNEUM 13-VAL/PF 0.5 ML IM ONE (20:58)
[2017-09-23] MEDS: PANTOPRAZOLE SODIUM 40 MG TABLET PO SCH (06:01)
[2017-09-23 06:53] LABS: ALB/GLOB RATIO 1.1 (1.1-1.8); ALBUMIN 3.5 g/dL (4.0-5.0); BILIRUBIN,TOTAL 0.3 mg/dL (0.2-1.0); CREATININE 1.4 mg/dL (0.5-0.9); TOTAL PROTEIN 6.6 g/dL (6.6-8.7)
--- NOTE | 2017-09-23 07:16 | CT SCAN REPORT ---
EXAM: EMERGENCY HEAD CT HISTORY: WEAKNESS, FALLS. TECHNIQUE: Axial CT scan of the head was performed without IV contrast. Comparison: Head CT 09/13/17, Encounter: Initial. FINDINGS: No definite acute intracranial hemorrhage identified. No focal mass effect or midline shift apparent. Mild generalized atrophy. Chronic appearing deep white matter changes, nonspecific, but likely representing some chronic small vessel deep white ischemic disease. No definite acute infarct or intracranial mass lesion seen. Persistent opacification of a right ethmoid air cell posteriorly as before. No depressed calvarial fracture evident. IMPRESSION: 1. NO DEFINITE ACUTE INTRACRANIAL HEMORRHAGE OR FOCAL MASS EFFECT EVIDENT. 2. GENERALIZED ATROPHY WITH CHRONIC APPEARING DEEP WHITE MATTER CHANGES BEFORE. JOB NUMBER: [id number]
[2017-09-23] MEDS ORDERED: APIXABAN 5MG TABLET PO SCH (10:00)
[2017-09-23] MEDS ORDERED: METFORMIN HCL PO SCH (10:00)
[2017-09-23] MEDS ORDERED: ATORVASTATIN 20 MG TABLET PO SCH ×2 (10:00→22:00)
[2017-09-23] MEDS ORDERED: LOSARTAN POTASSIUM 25 MG TABLET PO SCH ×2 (10:00→22:00)
[2017-09-23] MEDS ORDERED: SITAGLIPTIN PHOS PO SCH (10:00)
[2017-09-23] MEDS ORDERED: FLUOXETINE HCL 20 MG CAPSULE PO SCH ×2 (10:00→22:00)
[2017-09-23] MEDS: FERROUS SULFATE 325 MG TAB PO SCH (10:08)
--- NOTE | 2017-09-23 10:15 | Rehab Evaluation ---
Patient Information - Patient Information Diagnosis: weakness, falls, deconditioning Ordered Treatment: PT Evaluate and Treat Status: Initial Evaluation History: Detail (The patient arrived in ED with complaints of weakness which has progressed since her Rehab stay in April. Patient reports she fell last Tuesday.) Past Medical/Surgical Hx: PAST MEDICAL/SURGICAL HISTORY Past Surgical History bialt knee replacement right hip replacement PMH - Respiratory Hx Respiratory Disorders Yes Hx Asthma Yes PMH - Cardiovascular Hx Cardiovascular Disorders Yes Hx Hypertension Yes Hx Irregular Heartbeat Yes: AFIB with RVR, Eliquis Comment: high cholesterol PMH - Neuro Hx Neurological Disorders No Hx Cerebrovascular Accident No Hx Dizziness Yes Hx Parkinson's Disease No Hx Seizures No Hx Speech Problem No Hx Syncope No Comment: tremors left hand, states memory loss frequently PMH - GI Hx Gastrointestinal Disorders Yes Hx Diverticulitis Yes Hx Gastrointestinal Bleed Yes: 04/2017 Hx Gastroesophageal Reflux Yes Hx Rectal Bleeding No Hx Ulcer Yes: 3 large ulcers Comment: Dr Valente GI PMH - Hx Genitourinary Disorders Yes Patient No Hx Urinary Tract Infection Yes: two in last two mos PMH - Endocrine Hx Endocrine Disorders Yes Hx Diabetes Yes: Type II Hx Thyroid Disease No PMH - Musculoskeletal Hx Arthritis Yes Hx Fibromyalgia Yes Hx Gout No PMH - Psych Hx Psychiatric Problems Yes Hx Anxiety Yes Hx Depression Yes Hx Suicide Attempt No Major Depressive Episode No Feelings of Hopelessness No PMH - Hematology/Oncology Hx Hematology/Oncology Yes Disorders Hx Anemia Yes Hx Cancer No Hx Unexplained Bleeding No Hx Blood Transfusion Reaction No Premorbid Status: Detail (The patient was requiring assist from with all housework, dressing and showering. Patient was ambulating with 2 wheeled walker within the last week due to complaints of weakness.) Social History: Detail (The patient lives with spouse in a 2 story house ( patient stays on main floor) with 3 steps at the enterance without railings. The patient's bathroom is equipped with a walk in shower with a small step to get into the shower and grab bars. The patient reports she has a shower seat but does not use it. The patient 's bathroom has an elevated toilet seat with grab bars. The patient has front wheeled walker, a 4 wheeled walker and a cane which she hasn't used in awhile.) Precautions: [place], Fall - Time With Patient Total Time Spent With Patient (Min): 30 Treatment Procedures: Detail (Initial Evaluation) Subjective Information - Subjective Information Per Patient (The merten has no current complaints of pain. The patient reports a history of R shoulder pain and lower back pain.) Objective Data - Mental Status Patient Orientation: Oriented x3 - Visual Perception Appears within normal limits for therapeutic activities - ROM Within normal limits (The patient's LE AROM is WFL. Refer to OT note for UE AROM.) - Strength/Tone Not within normal limits (The patient's bilateral hip strength is 4/5 in hip flexors and adductors and 4+/5 in hip abductors in a seated position, hip extensors were not tested but were functional, L knee extensors 4-/5 with pain complaints with resistance, R 4/5, knee flexors bilaterally 4-/5, ankle/toe musculature L 4-/5, R 4/5.) - Bed Mobility Independent (Indepent supine to and from sit transfer.) - Transfers Independent (The patient was independent with sit to and stand from bed with effort and verbal cues not to pull up on walker. The patient was independent with use of grab bar for sit to stand from low toilet seat.) - Balance Balance Sitting: Good Balance Standing: Poor (The patient scored 15/28 using the Tinetti Assessment Tool which is at the high risk for falling category.) - Sensation Intact - Gait Detail (The patient ambulated 3 feet without device with CG, slow hesistant steps and requested to hang onto IV. The patient ambulated with front wheeled walker 60 feet x 1 with CG for safety. The patient's gait pattern is characterized by wide base of support, decreased stride length bilaterally, L foot drag and increased toed out position bilaterally.) Therapy Assessment - Therapy Assessment Detail (The patient is independent with bed mobility and transfers with slowed/ gaurded movements at times. The patient also presents with decreased LE strength and decreased balance in standing. Due to patient's unsteady gait pattern use of front wheeled walker is recommended. The patient would benefit from ongoing PT to improve balance, increase LE strength to increased stability of gait and improve ability to complete prolonged physical activity. The patient would benefit from short term subacute rehab to return to previous functional level.) Problem List - Problem List Physical Therapy Problem List: Detail (1) Decreased LE strength L greater then R 2) Decreased balance as measured by the Tinetti Assessment Tool 3) Numerous Gait deviations included L foot drag which may be contributing to patient's frequent falls.) Goals - Goals Physical Therapy Goals: 1) Increase LE strength 1/3 muscle grade to increase stability of gait. 2) Improve balance to medium risk level using Tinetti Assessment Tool for fall prevention. 3) Instruct patient in fall prevention techniques in the home environment. 4) The patient will tolerate 30 minutes of physical activity with one rest period. Prognosis - Prognosis Moderate Plan - Plan Physical Therapy Plan: PT 1 time a day M-F while and inpatient at [facility] for gait training, LE strengthening, and balance exercises. Ongoing PT is recommended in either a subacute , home or outpatient setting.
--- NOTE | 2017-09-23 13:21 | History & Physical ---
History of Present Illness - Date of Service Date of Service for History & Physical: 09/23/17 - History of Present Illness Admitting Diagnosis: weakness, falls, deconditioning, confusion, dehydration, renal insuffiency History of Present Illness: Mrs. Pineda is a 67 year-old female who presented to the ED on with complaint of persistent generalized weakness. She has gradually developed these symptoms over several months. She had atrial fibrillation in April with weakness and dehydration. She was admitted to the hospital and spent time in medical rehab. She had improved and eventually discharged home. She was doing well with ambulation. Over time this gradually reversed and she has declined with strength and activity. She is always weak, fatigued, and has had falls. She was seen in the ED on 09/13. Social work was contacted. She had home physical therapy requested. This has not started in the last 10 days and she has not seen her PCP in months. No fever. She did have a mild fall without any injury Tuesday. No headaches, no focal weakness, no vomiting. She states she is eating and drinking. Her history includes: asthma, HL, GERD, several UTIs, Afib, fibro In the ED, labs were stable, vital signs showed mild elevation of BP. EKG showed NSR- rate 65, intervals normal, no ST changes. Head CT on 09/13 was negative for acute changes and pt. has not had a head injury since. UA did reveal small blood and trace leuks- sent for culture. Pt's family did report physical decline, PT was ordered but did not start yet, and pt. has not f/u with her PCP. Due to pt's deconditioning, weakness, and falls, she was admitted for IV hydration, PT consult, and carotid dopplers. Plan to hold all meds that can cause AMS, sedation, weakness. 09/23/17 1000: Pt. is sitting up in bed. She is alert and oriented, however, she seems to have difficulty with remembering her medications and health history. She states that she was treated twice recently for UTI, first with macrobid, then clindamycin. She states that she is still experiencing bladder spasms, urgency , and some pain with urination. She state that she has a history of several UTIs. Will plan to start cipro 500 bid for UTI. PT/OT eval was completed this morning. Carotid dopplers have been completed and the report is pending. Pt. is set to discharge to [facility] tomorrow at 3pm per business office assistant. Travel Screening - Travel/Exposure Within Last 30 Days Have you traveled within the last 30 days?: No - Travel/Exposure Within Last Year Have you traveled outside the [place] in the last year?: No - Additonal Travel Details Have you been exposed to anyone with a communicable illness?: No Review of Systems Constitutional: Reports: Malaise, Weakness. Denies: Chills, Fever Eyes: Denies: Eye discharge, Eye pain, Photophobia, Vision change ENT: Denies: Congestion, Throat pain Respiratory: Denies: Cough, Dyspnea Cardiovascular: Denies: Chest pain, Palpitations, Syncope Endocrine: Reports: Fatigue. Denies: Polydipsia, Polyuria Gastrointestinal: Denies: Abdominal pain, Diarrhea, Nausea, Vomiting Genitourinary: Reports: Dysuria, Frequency, Urgency Musculoskeletal: Denies: Arthralgia, Back pain, Joint swelling, Myalgia Skin: Denies: Bruising, Change in color, Rash Neurological: Reports: Abnormal gait, Confusion (At times falles asleep. At times looses track of conversation topic. She is fully alert and oriented at this time.), Weakness. Denies: Headache, Tingling Psychiatric: Denies: Anxiety Hematological/Lymphatic: Denies: Blood Clots, Easy bleeding, Easy bruising, Swollen glands Past Medical History - SOCIAL HISTORY Smoking Status: Never smoker Alcohol Use: None Drug Use: None - RESPIRATORY Hx Respiratory Disorders: Yes Hx Asthma: Yes - CARDIOVASCULAR Hx Cardio Disorders: Yes Hx Hypertension: Yes Hx Irregular Heartbeat: Yes (AFIB with RVR, Eliquis) Comment:: high cholesterol - NEURO Hx Neuro Disorders: No Hx CVA: No Hx Dizziness: Yes Hx Parkinson's Disease: No Hx Seizures: No Hx Speech Problem: No Comment:: tremors left hand, states memory loss frequently - GI Hx GI Disorders: Yes Hx Diverticulitis: Yes Hx GI Bleed: Yes (04/2017) Hx Reflux: Yes Hx Rectal Bleeding: No Hx Ulcer: Yes (3 large ulcers) Comment:: Dr Valente [facility] - Hx Genitourinary Disorders: Yes Hx UTI: Yes (two in last two mos) - ENDOCRINE Hx Endocrine Disorders: Yes Hx Diabetes: Yes (Type II) Hx Thyroid Disease: No - MUSCULOSKELETAL Hx Arthritis: Yes Hx Fibromyalgia: Yes Hx Gout: No - PSYCH Hx Psych Problems: Yes Hx Anxiety: Yes Hx Depression: Yes Hx Suicide Attempt: No Major Depressive Episode: No Feelings of Hopelessness: No - HEMATOLOGY/ONCOLOGY Hx Hematology/Oncology Disorders: Yes Hx Anemia: Yes Hx Cancer: No Hx Unexplained Bleeding: No Hx Blood Transfusions: Yes (04/2017 5 units) Hx Blood Transfusion Reaction: No Family Medical History Any Significant Family History?: Yes Hx Cancer: Mother, Brother/Sister Hx Heart Disease: Father, Mother Hx HTN: Father, Mother Hx Resp Disorders: Mother Hx Stroke: Father, Mother, Brother/Sister H&P Meds/Allergies - Allergies Allergies: Allergies Allergy/AdvReac Type Severity Reaction Status Date / Time Carbapenems Allergy Unknown RASH Verified 04/30/17 23:00 Carbonic Anhydrase Inhibitors Allergy Unknown RASH Verified 04/30/17 23:00 Cephalosporins Allergy Unknown RASH Verified 04/30/17 23:00 Penicillins Allergy Unknown HIVES Verified 04/30/17 23:00 Sulfa (Sulfonamide Allergy Unknown HIVES Verified 04/30/17 23:00 Antibiotics) sulfamethoxazole Allergy Unknown HIVES Verified 04/30/17 23:00 Sulfonylureas Allergy Unknown HIVES Verified 04/30/17 23:00 Thiazides Allergy Unknown HIVES Verified 04/30/17 23:00 trimethoprim Allergy Unknown HIVES Verified 04/30/17 23:00 acetaminophen [From Vicodin] Allergy HIVES Verified 04/30/17 23:00 codeine Allergy HIVES Verified 04/30/17 23:00 hydrocodone bitartrate Allergy HIVES Verified 04/30/17 23:00 [From Vicodin] - Home Medications Home Medications Medication Instructions Recorded Confirmed Last Taken Cyclobenzaprine HCl [Flexeril] 10 mg PO QHS PRN 09/22/17 09/22/17 09/21/17 Ferrous Sulfate [Feosol] 65 mg PO DAILY 09/22/17 09/22/17 09/22/17 - Active Medications Active Medications: Current Medications Acetaminophen (Tylenol 500mg Tab) 500 mg PO Q6H PRN PRN Reason: PAIN - MILD(1-4)/FEVER Last Admin: 09/23/17 06:00 Dose: 500 mg Apixaban (Eliquis) 5 mg PO DAILY [facility] Last Admin: 09/23/17 10:07 Dose: 5 mg Atorvastatin Calcium (Lipitor) 80 mg PO QHS [facility] Ciprofloxacin (Cipro) 500 mg PO Q12HR [facility] Stop: 09/29/17 22:01 Ferrous Sulfate (Iron) 325 mg PO DAILY [facility] Last Admin: 09/23/17 10:08 Dose: 325 mg Fluoxetine HCl (Prozac) 20 mg PO QHS [facility] Sodium Chloride () 1,000 mls @ 100 mls/hr IV .Q10H PRN PRN Reason: LARGE VOLUME IV Last Admin: 09/23/17 05:57 Dose: 100 mls/hr Losartan Potassium (Cozaar) 25 mg PO QHS [facility] Non-Formulary Medication (Sitagliptin Phos/Metformin Hcl [Janumet 50-500 Mg Tablet]) 50 mg PO DAILY [facility] Last Admin: 09/23/17 06:01 Dose: 40 mg Physical Exam - Vital Signs Vital Signs: Vital Signs - Last 24 Hrs Temp Pulse Pulse Resp BP Pulse Ox 09/23/17 10:05 97.8 F 62 18 154/86 96 09/23/17 09:00 56 L 09/23/17 06:00 97.7 F 64 16 149/83 97 09/22/17 20:25 77 12 09/22/17 20:18 98.0 F 60 17 143/71 98 09/22/17 20:00 97.7 F 61 16 144/70 98 09/22/17 18:32 62 20 134/73 96 09/22/17 17:12 97.9 F 68 18 144/83 95 - General General Appearance: Alert, Oriented x3, Cooperative, No acute distress Limitations: No limitations - Head Head exam: Atraumatic, Normocephalic, Normal inspection Head exam detail: negative: Abrasion, Contusion, General tenderness, Hematoma, Laceration - Eye Eye exam: Normal appearance, PERRL. negative: Conjunctival injection, Scleral icterus - ENT ENT exam: Normal exam, Mucous membranes moist Ear exam: Normal external inspection Nasal Exam: Normal inspection Mouth exam: Normal external inspection - Neck Neck exam: Normal inspection - Respiratory Respiratory exam: Normal lung sounds bilaterally. negative: Respiratory distress - Cardiovascular Cardiovascular Exam: Regular rate, Normal rhythm, Normal heart sounds Peripheral Pulses: 2+: Radial (R), Radial (L) - GI/Abdominal GI/Abdominal exam: Soft. negative: Tenderness - Rectal Rectal exam: Deferred - exam: Deferred - Extremities Extremities exam: Normal inspection, Full ROM, Normal capillary refill. negative: Calf tenderness, Joint swelling, Tenderness - Back Back exam: Denies: CVA tenderness (R), CVA tenderness (L) - Neurological Neurological exam: Abnormal gait, Alert, CN II-XII intact, Other (She is alert, no current confusion, no focal weakness). negative: Altered, Motor sensory deficit, Normal gait - Psychiatric Psychiatric exam: Depressed, Flat affect. negative: Agitated, Anxious - Skin Skin exam: Dry, Intact, Normal color, Warm Results - Labs Result Diagrams: 09/22/17 17:15 09/23/17 06:12 Labs Last 24 Hours: Laboratory Results - last 24 hr 09/22/17 09/22/17 09/22/17 17:15 17:15 17:15 WBC 6.2 RBC 5.35 Hgb 13.8 Hct 43.0 MCV 80.4 L MCH 25.8 L MCHC 32.1 RDW 17.3 H Plt Count 293 MPV 9.0 Gran % 68.5 Lymphocytes % 15.8 L Monocytes % 11.4 H Eosinophils % 4.0 Basophils % 0.3 Sodium 136 Potassium 4.6 H Chloride 100 Carbon Dioxide 24.0 Anion Gap 12.0 BUN 23 Creatinine 1.6 H Estimated GFR 34 Random Glucose 140 H Calcium 10.6 H Magnesium Total Bilirubin 0.30 AST 24 ALT 18 Alkaline Phosphatase 95 Troponin T < 0.010 Total Protein 7.5 Albumin 4.2 Globulin 3.3 Albumin/Globulin Ratio 1.3 TSH 1.45 Urine Color Yellow Urine Appearance Clear Urine pH 6.0 Ur Specific [place] <= 1.005 Urine Protein Negative Urine Glucose (UA) Negative Urine Ketones Negative Urine Blood Trace-i Urine Nitrite Negative Urine Bilirubin Negative Urine Urobilinogen 0.2 Ur Leukocyte Esterase Small H Urine RBC 0 - 2 Urine WBC 3 - 5 Ur Epithelial Cells 0 - 2 Urine Bacteria None seen 09/22/17 09/23/17 17:15 06:12 WBC RBC Hgb Hct MCV MCH MCHC RDW Plt Count MPV Gran % Lymphocytes % Monocytes % Eosinophils % Basophils % Sodium 138 Potassium 4.8 H Chloride 104 Carbon Dioxide 22.0 Anion Gap 12.0 BUN 20 Creatinine 1.4 H Estimated GFR 40 Random Glucose 93 Calcium 10.1 Magnesium 2.0 Total Bilirubin 0.30 AST 18 ALT 16 Alkaline Phosphatase 84 Troponin T Total Protein 6.6 Albumin 3.5 L Globulin 3.1 Albumin/Globulin Ratio 1.1 TSH Urine Color Urine Appearance Urine pH Ur Specific [place] Urine Protein Urine Glucose (UA) Urine Ketones Urine Blood Urine Nitrite Urine Bilirubin Urine Urobilinogen Ur Leukocyte Esterase Urine RBC Urine WBC Ur Epithelial Cells Urine Bacteria - Imaging and Cardiology CT scan - head Status: Report reviewed (atrophy, chronic white matter changes, no acute processes) VTE H&P Assessment - Risk for VTE Risk for VTE: Yes Risk Level: Moderate Risk Assessment Date: 09/23/17 Risk Assessment Time: 13:18 VTE Orders Placed or Will Be Placed: No VTE Reason for No Prophylaxis: Not Indicated (Pt. is on Eliquis) Plan - Detailed Diagnosis and Plan (1) Physical deconditioning Current Visit: Yes Status: Acute Base Code: R53.81 - OTHER MALAISE Comment : 09/23/17: -PT/OT evaluation today- decreased balance and LE strength, gait variations, recommended PT daily M-F -Casework in process of arranging [facility] upon discharge -Bed alarm, fall precautions, holding pt's home meds that may contibute to dizziness/falls- cyclobenazeprine, ambien, hydroxyzine (2) UTI (urinary tract infection) Current Visit: Yes Status: Acute Base Code: N39.0 - URINARY TRACT INFECTION , SITE NOT SPECIFIED Comment: 09/23/17: -UA in ED revealed trace blood and small leuks, pt. reports recurrent UTIs for 3 months- treated with macrobid and clindamycin -Start cipro 500mg bid for 7 days for UTI, likely complicated due to failed OP treatment -Urine was sent for culture (3) At risk for deep venous thrombosis Current Visit: Yes Status: Acute Base Code: Z91.89 - OTH PERSONAL RISK FACTORS, NOT ELSEWHERE CLASSIFIED Comment: 09/23/17: -Hx of afib, dx 3 months ago -Eliquis 5mg daily for anticoagulation (4) DNR (do not resuscitate) Current Visit: Yes Status: Acute Base Code: Z66 - DO NOT RESUSCITATE Comment: 09/23/17: -Pt. is a DNR
--- NOTE | 2017-09-23 13:50 | US CAROTID DOPPLER REPORT ---
EXAM: BILATERAL CAROTID DOPPLER ULTRASOUND HISTORY: CEREBROVASCULAR ACCIDENT. TECHNIQUE: Sonographic evaluation of the vasculature of the neck was performed with the addition of Doppler and spectral analysis. FINDINGS: No flow was identified in the right ICA. The common carotid artery peak systolic velocity is 41 cm/s. The ECA is 62 cm/s. The vertebral artery has antegrade flow and is 32 cm/s. Diminished waveform on the left. The ICA is 52 cm/s. The CCA is 50 cm/s. The ECA is 73 cm/s. The vertebral is 23 cm/s and has antegrade flow. The ICA/CCA ratio on the left is 1.0. IMPRESSION: 1. TOTAL OCCLUSION OF THE RIGHT INTERNAL CAROTID ARTERY. 2. MODERATE STENOSIS OF THE LEFT INTERNAL CAROTID ARTERY. FURTHER EVALUATION WITH CTA OR MRA IS RECOMMENDED. JOB NUMBER: [id number] MTDD
--- NOTE | 2017-09-23 14:30 | Rehab Evaluation ---
Patient Information - Patient Information Diagnosis: weakness, falls, deconditioning, renal insufficiency, dehydration, confusion Ordered Treatment: OT Evaluate and Treat Status: Initial Evaluation History: Detail (The patient arrived in ED with complaints of weakness which has progressed since her Rehab stay in April. Patient reports she fell last Tuesday.) Past Medical/Surgical Hx: PAST MEDICAL/SURGICAL HISTORY Past Surgical History bialt knee replacement right hip replacement PMH - Respiratory Hx Respiratory Disorders Yes Hx Asthma Yes PMH - Cardiovascular Hx Cardiovascular Disorders Yes Hx Hypertension Yes Hx Irregular Heartbeat Yes: AFIB with RVR, Eliquis Comment: high cholesterol PMH - Neuro Hx Neurological Disorders No Hx Cerebrovascular Accident No Hx Dizziness Yes Hx Parkinson's Disease No Hx Seizures No Hx Speech Problem No Hx Syncope No Comment: tremors left hand, states memory loss frequently PMH - GI Hx Gastrointestinal Disorders Yes Hx Diverticulitis Yes Hx Gastrointestinal Bleed Yes: 04/2017 Hx Gastroesophageal Reflux Yes Hx Rectal Bleeding No Hx Ulcer Yes: 3 large ulcers Comment: Dr Valente GI PMH - Hx Genitourinary Disorders Yes Patient No Hx Urinary Tract Infection Yes: two in last two mos PMH - Endocrine Hx Endocrine Disorders Yes Hx Diabetes Yes: Type II Hx Thyroid Disease No PMH - Musculoskeletal Hx Arthritis Yes Hx Fibromyalgia Yes Hx Gout No PMH - Psych Hx Psychiatric Problems Yes Hx Anxiety Yes Hx Depression Yes Hx Suicide Attempt No Major Depressive Episode No Feelings of Hopelessness No PMH - Hematology/Oncology Hx Hematology/Oncology Yes Disorders Hx Anemia Yes Hx Cancer No Hx Unexplained Bleeding No Hx Blood Transfusion Reaction No Premorbid Status: Detail (The patient was requiring assist from with all housework, meal prep, laundry, dressing and showering since April,. Prior to this she reports being Ind with ADLs/IADLs. Patient was ambulating with 2 wheeled walker within the last week due to complaints of weakness.) Social History: Detail (The patient lives with spouse in a 2 story house ( patient stays on main floor) with 3 steps at the entrance without railings. The patient's bathroom is equipped with a walk in shower with a small step to get into the shower and grab bars. The patient reports she has a shower seat but does not use it. The patient 's bathroom has an elevated toilet seat with grab bars. The patient has front wheeled walker, a 4 wheeled walker and a cane which she hasn't used in awhile.) Precautions: [place], Fall - Time With Patient Total Time Spent With Patient (Min): 35 Treatment Procedures: Detail (OT eval low complexity) Subjective Information - Subjective Information Per Patient Objective Data - Pain Pain Present: No (Pt reports no pain currently. She reports having pain in right shoulder/arm and low back at times.) - Mental Status Patient Orientation: Oriented x3 - Visual Perception Appears within normal limits for therapeutic activities - ROM Not within normal limits (Rock shoulder flexion limited to approx. 120 degrees, rock elbow, wrist and hand AROM WNL.) - Strength/Tone Not within normal limits (Right shoulder flexion 3+/5 within AROM limitations, left shoulder flexion 4/5 within AROM limitations, rock elbow and electric motor tester strength 4 /5.) - Coordination Appears within normal limits for therapeutic activities - Transfers Independent (Pt Ind with sit to stand from EOB and standard height toilet with use of grab bar and verbal cues for proper technique.) - Balance Balance Sitting: Good Balance Standing: Fair - Sensation Intact - Gait Detail (Pt ambulated short distance with 2 wheeled walker and SBA. She was easily fatigued.) - ADL's/IADL's Detail (Pt reports nursing has been assisting with all ADLs. She was able to complete toileting with SBA, she required min assist to doff soiled briefs and mod-max assist to don briefs over feet. She was Ind with toileting hygiene and Ind with pulling briefs up over hips in standing.) Therapy Assessment - Therapy Assessment Detail (Pt presents with decreased Ind with self cares, decreased UE strength/ endurance and overall decreased activity tolerance.) Problem List - Problem List Physical Therapy Problem List: Detail (1) Decreased LE strength L greater then R 2) Decreased balance as measured by the Tinetti Assessment Tool 3) Numerous Gait deviations included L foot drag which may be contributing to patient's frequent falls.) Occupational Therapy Problem List: Detail (1. Decreased UE strength and overall endurance needed for safe and Ind self cares. 2. Decreased Ind with self care activities.) Goals - Goals Physical Therapy Goals: 1) Increase LE strength 1/3 muscle grade to increase stability of gait. 2) Improve balance to medium risk level using Tinetti Assessment Tool for fall prevention. 3) Instruct patient in fall prevention techniques in the home environment. 4) The patient will tolerate 30 minutes of physical activity with one rest period. Occupational Therapy Goals: 1. Pt will be safe and Ind with grooming/hygiene tasks. 2. Pt will be Ind with total body dressing. 3. Pt will demonstrate improved UE strength and overall endurance needed to return home and be Ind with self cares. Prognosis - Prognosis Good Plan - Plan Physical Therapy Plan: PT 1 time a day M-F while and inpatient at [facility] for gait training, LE strengthening, and balance exercises. Ongoing PT is recommended in either a subacute , home or outpatient setting. Occupational Therapy Plan: Recommend continued OT in IP rehab setting to improve endurance and Ind with self cares and IADLs. OT 2-4 times per week while IP to address goals.
[2017-09-23] MEDS: CIPROFLOXACIN HCL 500 MG TABLET PO SCH ×2 (15:07→21:46)
[2017-09-23] MEDS: METFORMIN 500 MG TABLET PO SCH ×3 (15:10→19:40)
--- NOTE | 2017-09-23 15:43 | RADIOLOGY REPORT ---
EXAM: CHEST 1 VIEW CLINICAL HISTORY: Chest Pain TECHNIQUE: Single AP view of the chest was performed. FINDINGS: Heart size is normal. The lungs liu are clear. The osseous structures are normal. IMPRESSION: 1. Negative Chest Examination. JOB NUMBER: [id number] MTDD
--- NOTE | 2017-09-23 17:46 | Physician Progress Note ---
Subjective - Date Date of Physician Progress Note: 09/23/17 - Subjective Subjective Comment: Carotid doppler report final- 100% blockage of right carotid artery, moderate stenosis of left carotid artery. Pt. was notified of results. Discussed with Dr. Blanco and will still plan to discharge tomorrow and plan to f/u with cardiovascular surgery outpatient after discharge. Objective - Vital Signs Vital Signs: Vital Signs - Last 24 Hrs Temp Pulse Pulse Resp BP Pulse Ox 09/23/17 10:05 97.8 F 62 18 154/86 96 09/23/17 09:00 56 L 09/23/17 06:00 97.7 F 64 16 149/83 97 09/22/17 20:25 77 12 09/22/17 20:18 98.0 F 60 17 143/71 98 09/22/17 20:00 97.7 F 61 16 144/70 98 09/22/17 18:32 62 20 134/73 96 - General General Appearance: Alert, Oriented x3, Cooperative, No acute distress Limitations: No limitations - Head Head exam: Atraumatic, Normocephalic, Normal inspection Head exam detail: negative: Abrasion, Contusion, General tenderness, Hematoma, Laceration - Eye Eye exam: Normal appearance, PERRL. negative: Conjunctival injection, Scleral icterus - ENT ENT exam: Normal exam, Mucous membranes moist Ear exam: Normal external inspection Nasal Exam: Normal inspection Mouth exam: Normal external inspection - Neck Neck exam: Normal inspection - Respiratory Respiratory exam: Normal lung sounds bilaterally. negative: Respiratory distress - Cardiovascular Cardiovascular Exam: Regular rate, Normal rhythm, Normal heart sounds Peripheral Pulses: 2+: Radial (R), Radial (L) - GI/Abdominal GI/Abdominal exam: Soft. negative: Tenderness - Rectal Rectal exam: Deferred - exam: Deferred - Extremities Extremities exam: Normal inspection, Full ROM, Normal capillary refill. negative: Calf tenderness, Joint swelling, Tenderness - Back Back exam: Denies: CVA tenderness (R), CVA tenderness (L) - Neurological Neurological exam: Abnormal gait, Alert, CN II-XII intact, Other (She is alert, no current confusion, no focal weakness). negative: Altered, Motor sensory deficit, Normal gait - Psychiatric Psychiatric exam: Depressed, Flat affect. negative: Agitated, Anxious - Skin Skin exam: Dry, Intact, Normal color, Warm Assessment and Plan - Assessment and Plan (1) Physical deconditioning Current Visit: Yes Status: Acute Base Code: R53.81 - OTHER MALAISE Comment : 09/23/17: -PT/OT evaluation today- decreased balance and LE strength, gait variations, recommended PT daily M-F -Casework in process of arranging JOCELYN upon discharge -Bed alarm, fall precautions, holding pt's home meds that may contibute to dizziness/falls- cyclobenazeprine, ambien, hydroxyzine (2) UTI (urinary tract infection) Current Visit: Yes Status: Acute Base Code: N39.0 - URINARY TRACT INFECTION , SITE NOT SPECIFIED Comment: 09/23/17: -UA in ED revealed trace blood and small leuks, pt. reports recurrent UTIs for 3 months- treated with macrobid and clindamycin -Start cipro 500mg bid for 7 days for UTI, likely complicated due to failed OP treatment -Urine was sent for culture (3) At risk for deep venous thrombosis Current Visit: Yes Status: Acute Base Code: Z91.89 - OTH PERSONAL RISK FACTORS, NOT ELSEWHERE CLASSIFIED Comment: 09/23/17: -Hx of afib, dx 3 months ago -Eliquis 5mg daily for anticoagulation (4) DNR (do not resuscitate) Current Visit: Yes Status: Acute Base Code: Z66 - DO NOT RESUSCITATE Comment: 09/23/17: -Pt. is a DNR Results - Labs Result Diagrams: 09/22/17 17:15 09/23/17 06:12 Labs Last 24 Hours: Laboratory Results - last 24 hr 09/22/17 09/22/17 09/22/17 17:15 17:15 17:15 Sodium 136 Potassium 4.6 H Chloride 100 Carbon Dioxide 24.0 Anion Gap 12.0 BUN 23 Creatinine 1.6 H Estimated GFR 34 Random Glucose 140 H Calcium 10.6 H Magnesium 2.0 Total Bilirubin 0.30 AST 24 ALT 18 Alkaline Phosphatase 95 Troponin T < 0.010 Total Protein 7.5 Albumin 4.2 Globulin 3.3 Albumin/Globulin Ratio 1.3 TSH 1.45 Urine RBC 0 - 2 Urine WBC 3 - 5 Ur Epithelial Cells 0 - 2 Urine Bacteria None seen 09/23/17 06:12 Sodium 138 Potassium 4.8 H Chloride 104 Carbon Dioxide 22.0 Anion Gap 12.0 BUN 20 Creatinine 1.4 H Estimated GFR 40 Random Glucose 93 Calcium 10.1 Magnesium Total Bilirubin 0.30 AST 18 ALT 16 Alkaline Phosphatase 84 Troponin T Total Protein 6.6 Albumin 3.5 L Globulin 3.1 Albumin/Globulin Ratio 1.1 TSH Urine RBC Urine WBC Ur Epithelial Cells Urine Bacteria DVT/PE Assessment - Risk for VTE Risk for VTE: No Risk Level: Moderate Risk Assessment Date: 09/23/17 Risk Assessment Time: 13:18 VTE Orders Placed or Will Be Placed: No VTE Reason for No Prophylaxis: Not Indicated (Pt. is on Eliquis) - Active Medicaitons Current Medications: Current Medications Acetaminophen (Tylenol 500mg Tab) 500 mg PO Q6H PRN PRN Reason: PAIN - MILD(1-4)/FEVER Last Admin: 09/23/17 06:00 Dose: 500 mg Apixaban (Eliquis) 5 mg PO BID [facility] Atorvastatin Calcium (Lipitor) 80 mg PO QHS [facility] Ciprofloxacin (Cipro) 500 mg PO Q12HR [facility] Stop: 09/29/17 22:01 Last Admin: 09/23/17 15:07 Dose: 500 mg Ferrous Sulfate (Iron) 325 mg PO DAILY [facility] Last Admin: 09/23/17 10:08 Dose: 325 mg Fluoxetine HCl (Prozac) 20 mg PO QHS [facility] Losartan Potassium (Cozaar) 25 mg PO QHS [facility] Metformin HCl (Glucophage Ir) 500 mg PO BIDWM [facility] Last Admin: 09/23/17 15:14 Dose: 500 mg Pantoprazole Sodium (Protonix) 40 mg PO DAILYAC [facility] Last Admin: 09/23/17 06:01 Dose: 40 mg Tramadol HCl (Ultram) 100 mg PO Q6H PRN PRN Reason: pain AMI Plan - Labs Result Diagrams: 09/22/17 17:15 09/23/17 06:12
[2017-09-23] MEDS: BETAMETHASONE VAL 0.1% TOP SCH ×2 (17:57→21:46)
[2017-09-23] MEDS ORDERED: BETAMETHASONE VAL 0.1% TOP SCH (18:00)
[2017-09-23] MEDS: APIXABAN 5MG TABLET PO SCH (21:46)
[2017-09-23] MEDS: TRAMADOL HCL 50 MG TABLET PO PRN (22:29)
[2017-09-23] MEDS: DIPHENHYDRAMINE HCL 25 MG CAPSULE PO PRN (22:29)
[2017-09-24] MEDS ORDERED: ONDANSETRON HCL IV 4 MG/2 ML VIAL IVP PRN (00:04)
[2017-09-24] MEDS: PANTOPRAZOLE SODIUM 40 MG TABLET PO SCH (06:14)
[2017-09-24] MEDS: TRAMADOL HCL 50 MG TABLET PO PRN ×2 (08:06→13:47)
[2017-09-24] MEDS: DIPHENHYDRAMINE HCL 25 MG CAPSULE PO PRN (08:06)
[2017-09-24] MEDS: METFORMIN 500 MG TABLET PO SCH (08:07)
[2017-09-24] MEDS: APIXABAN 5MG TABLET PO SCH (09:47)
[2017-09-24] MEDS: CIPROFLOXACIN HCL 500 MG TABLET PO SCH (09:47)
[2017-09-24] MEDS: FERROUS SULFATE 325 MG TAB PO SCH (09:47)
[2017-09-24] MEDS: BETAMETHASONE VAL 0.1% TOP SCH (09:51)
--- NOTE | 2017-09-24 10:26 | Discharge Summary ---
Providers Discharge Summary Date: 09/24/17 Date of admission: 09/22/17 20:06 Expected Date of Discharge: 09/24/17 Attending physician: ROLLY BLANCO Primary care physician: STEVENSON LYNN M.D. Physical Exam - Vital Signs Vital Signs: Vital Signs - Last 24 Hrs Temp Pulse Pulse Resp BP Pulse Ox 09/24/17 09:30 98.7 F 70 16 149/75 96 09/24/17 06:22 98.1 F 62 62 16 145/70 93 L 09/23/17 21:00 62 16 09/23/17 18:00 98.5 F 64 18 179/82 98 - General General Appearance: Alert, Oriented x3, Cooperative, No acute distress Limitations: No limitations - Head Head exam: Atraumatic, Normocephalic, Normal inspection Head exam detail: negative: Abrasion, Contusion, General tenderness, Hematoma, Laceration - Eye Eye exam: Normal appearance, PERRL. negative: Conjunctival injection, Scleral icterus - ENT ENT exam: Normal exam, Mucous membranes moist Ear exam: Normal external inspection Nasal Exam: Normal inspection Mouth exam: Normal external inspection - Neck Neck exam: Normal inspection - Respiratory Respiratory exam: Normal lung sounds bilaterally. negative: Respiratory distress - Cardiovascular Cardiovascular Exam: Regular rate, Normal rhythm, Normal heart sounds Peripheral Pulses: 2+: Radial (R), Radial (L) - GI/Abdominal GI/Abdominal exam: Soft. negative: Tenderness - Rectal Rectal exam: Deferred - exam: Deferred - Extremities Extremities exam: Normal inspection, Full ROM, Normal capillary refill. negative: Calf tenderness, Joint swelling, Tenderness - Back Back exam: Denies: CVA tenderness (R), CVA tenderness (L) - Neurological Neurological exam: Abnormal gait, Alert, CN II-XII intact, Other (She is alert, no current confusion, no focal weakness). negative: Altered, Motor sensory deficit, Normal gait - Psychiatric Psychiatric exam: Depressed, Flat affect. negative: Agitated, Anxious - Skin Skin exam: Dry, Intact, Normal color, Warm Hospitalization - Hospitalization Admission Diagnosis: weakness, falls, deconditioning, confusion, dehydration, renal insuffiency - Problem List/Discharge Diagnosis (1) Physical deconditioning Current Visit: Yes Status: Acute Base Code: R53.81 - OTHER MALAISE Comment : 09/24/17: -PT/OT evaluation 09/23- decreased balance and LE strength, gait variations, recommended PT daily M-F -Casework arranged JOCELYN at [facility], plan to discharge today at 3pm (2) Right carotid artery occlusion Current Visit: Yes Status: Acute Base Code: I65.21 - OCCLUSION AND STENOSIS OF RIGHT CAROTID ARTERY Comment: 09/24/17: -Carotid dopplers on 09/23 revealed a 100% right carotid occlusion and moderate left carotid artery stenosis -Pt. was informed of result and need to f/u with CV for further evaluation, consider CT angiogram outpatient (3) UTI (urinary tract infection) Current Visit: Yes Status: Acute Base Code: N39.0 - URINARY TRACT INFECTION , SITE NOT SPECIFIED Comment: 09/24/17: -UA in ED revealed trace blood and small leuks, pt. reports recurrent UTIs for 3 months- treated with macrobid and clindamycin -Start cipro 500mg bid for 7 days for UTI, likely complicated due to failed OP treatment -Urine was sent for culture (4) At risk for deep venous thrombosis Current Visit: Yes Status: Acute Base Code: Z91.89 - OTH PERSONAL RISK FACTORS, NOT ELSEWHERE CLASSIFIED Comment: 09/24/17: -Hx of afib, dx 3 months ago -Eliquis 5mg bid for anticoagulation (5) DNR (do not resuscitate) Current Visit: Yes Status: Acute Base Code: Z66 - DO NOT RESUSCITATE Comment: 09/24/17: -Pt. is a DNR - Hospitalization Course Disposition: Inpatient Rehab Facility Hospital Course: Mrs. Knight is a 67 year-old female who presented to the ED on with complaint of persistent generalized weakness. She has gradually developed these symptoms over several months. She had atrial fibrillation in April with weakness and dehydration. She was admitted to the hospital and spent time in medical rehab. She had improved and eventually discharged home. She was doing well with ambulation. Over time this gradually reversed and she has declined with strength and activity. She is always weak, fatigued, and has had falls. She was seen in the ED on 09/13. Social work was contacted. She had home physical therapy requested. This has not started in the last 10 days and she has not seen her PCP in months. No fever. She did have a mild fall without any injury Tuesday. No headaches, no focal weakness, no vomiting. She states she is eating and drinking. Her history includes: asthma, HL, GERD, several UTIs, Afib, fibro In the ED, labs were stable, vital signs showed mild elevation of BP. EKG showed NSR- rate 65, intervals normal, no ST changes. Head CT on 09/13 was negative for acute changes and pt. has not had a head injury since. UA did reveal small blood and trace leuks- sent for culture. Pt's family did report physical decline, PT was ordered but did not start yet, and pt. has not f/u with her PCP. Due to pt's deconditioning, weakness, and falls, she was admitted for IV hydration, PT consult, and carotid dopplers. Plan to hold all meds that can cause AMS, sedation, weakness. 09/23/17 1000: Pt. is sitting up in bed. She is alert and oriented, however, she seems to have difficulty with remembering her medications and health history. She states that she was treated twice recently for UTI, first with macrobid, then clindamycin. She states that she is still experiencing bladder spasms, urgency , and some pain with urination. She state that she has a history of several UTIs. Will plan to start cipro 500 bid for UTI. PT/OT eval was completed this morning. Carotid dopplers have been completed and the report is pending. Pt. is set to discharge to [facility] for [facility] tomorrow at 3pm per torch cutter. 09/24/17 1020: Pt. is sitting up in her chair this morning. Her vitals have remained stable. Carotid doppler report findings: 100% right carotid artery occlusion and moderate left carotid artery stenosis. Dr. Blanco was informed of result and recommended CV f/u outpatient and possible need for CT angiogram outpatient. Pt. was informed of results. Will plan to discharge to [facility] today for continued PT/OT for deconditioning and continue Cipro 500mg BID for UTI. Pt. to f/u with cardiovascular surgery outpatient. Procedures: Imaging and X-Rays 09/22/17 18:42 HEAD WO CONTRAST [CT] Stat 09/23/17 07:59 ARTERIAL DOPPLER CAROTID MAURISIO [US] Stat 09/23/17 11:23 CHEST 1 VIEW [RAD] Stat Cardiology Procedures 09/22/17 17:03 EKG NOW 09/22/17 17:09 Double Cut Sawyer NOW Abnormal Labs: Abnormal Lab Results 09/22/17 09/22/17 09/22/17 Range/Units 17:15 17:15 17:15 MCV 80.4 L (81-97) fl MCH 25.8 L (27-33) pg RDW 17.3 H (11.5-14.5) % Lymphocytes % 15.8 L (16-45) % Monocytes % 11.4 H (0-9) % Potassium 4.6 H (3.4-4.5) mmol/L Creatinine 1.6 H (0.5-0.9) mg/dL Random Glucose 140 H (74-109) mg/dL Calcium 10.6 H (8.8-10.2) mg/dL Albumin (4.0-5.0) g/dL Ur Leukocyte Esterase Small H (NEGATIVE) 09/23/17 Range/Units 06:12 MCV (81-97) fl MCH (27-33) pg RDW (11.5-14.5) % Lymphocytes % (16-45) % Monocytes % (0-9) % Potassium 4.8 H (3.4-4.5) mmol/L Creatinine 1.4 H (0.5-0.9) mg/dL Random Glucose (74-109) mg/dL Calcium (8.8-10.2) mg/dL Albumin 3.5 L (4.0-5.0) g/dL Ur Leukocyte Esterase (NEGATIVE) Condition at Discharge: (2) Stable VTE Discharge VTE Reason For No Overlap Therapy: Not Indicated (Pt. is on Eliquis 5mg bid) Discharge Medications - Discharge Medications Prescriptions: Ciprofloxacin HCl [Cipro] 500 mg PO Q12HR #11 tablet Home Medications: Ambulatory Orders Rosuvastatin Calcium [Crestor] 20 mg PO QHS 09/23/14 [Last Taken Unknown] Tramadol HCl [Tramadol HCl ER] 100 mg PO QID 09/23/14 [Last Taken 09/22/17] Apixaban [Eliquis] 5 mg PO BID 09/13/17 [Last Taken 09/22/17] Fluoxetine HCl 20 mg PO QHS 09/13/17 [Last Taken 09/21/17] Hydroxyzine HCl 25 mg PO DAILY PRN 09/13/17 [Last Taken Unknown] Losartan Potassium 25 mg PO QHS 09/13/17 [Last Taken 09/21/17] Pantoprazole Sodium [Protonix] 40 mg PO BID 09/13/17 [Last Taken 09/22/17] Sitagliptin Phos/Metformin HCl [Janumet 50-500 mg Tablet] 50 mg PO BID 09/13/17 [Last Taken Unknown] Zolpidem Tartrate 5 mg PO QHS 09/13/17 [Last Taken Unknown] Cyclobenzaprine HCl [Flexeril] 10 mg PO QHS PRN 09/22/17 [Last Taken 09/21/17] Ferrous Sulfate [Feosol] 65 mg PO DAILY 09/22/17 [Last Taken 09/22/17] Ciprofloxacin HCl [Cipro] 500 mg PO Q12HR #11 tablet 09/24/17 [Last Taken Unknown] Discharge Plan - Discharge Instructions Activity at Discharge: As Per Physical Therapy Diet at Discharge: Regular Diet Additional Instructions: Start Cipro 500mg tonight at 10pm, then take every 12 hours until complete (for UTI) Follow up with your PCP in 3-5 days Follow up with cardiovascular surgery regarding right carotid artery occlusion and need for further testing/imaging Quality Measures - Quality Measures Quality Measures: Advance Directives, Documentation of Current Medications in Medical Record, Elder Maltreatment Screen and Follow-Up Plan, Screening for High Blood Pressure and F/U Documented - Current Medications Quality Measure: Measure #130: Documentation of Current Medications Documentation of Current Medications: <Current Medications Documented/Reviewed> [[id number]] - Blood Pressure Screening Quality Measure: Screening for High Blood Pressure and Follow-Up Documented Does Patient Have Any of the Following: Active Dx of HTN Blood Pressure Classification: Hypertensive Reading Systolic Measurement: 149 Diastolic Measurement: 75 Screening for High Blood Pressure: Patient Exclusion, Hx of HTN [G9744] - Advance Directives Quality Measure: Measure #47: Care Plan Advance Directives Established: No Advance Directives Information Provided To Patient: No Advance Directives on File: No Living Will: No Power of Income Tax Investigator: Yes Power of Income Tax Investigator Name: STU KNIGHT V Advance Care Planning: <Care Plan/Decision Maker Documented; Discussed & Documented> [[id number]] - Elder Abuse Suspicion Index Screening: Elder Abuse Suspicion Index Screening Rely on people for bathing, dressing, shopping, banking, etc: No Prevented from getting food, clothes, medication, etc: No Made to feel shamed or threatened by someone: No Forced to sign papers or use money against will: No Feel afraid, touched in ways not wanted or hurt physically: No Poor eye contact, withdrawn, malnourished, cuts or bruises: No Screening Result: Negative result EASI Reference Information: Jose SALAZAR, Cinthia Bernstein, Pat Sanchez, Moises Campbell.Development and validation of a tool to assist physicians identification of elder abuse: The Elder Abuse Suspicion Index (EASI ). Journal of Elder Abuse and Neglect, 2008; 20 (3): 276-300. - Elder Maltreatment Screen Quality Measures: Elder Maltreatment Screen and Follow-Up Plan Elder Maltreatment Screen: <Negative, No Follow-Up Plan Required> [G8734]
== END 2017-09-24 14:55 ==
LOC: ER 16:55 → MEDSURG 20:06 → INTOOBSV 20:06
PROVIDERS: ADMIT Internal Medicine; ATTEND Internal Medicine
DX: R53.81 Other malaise (principal); R53.1 Weakness; R29.6 Repeated falls; R41.0 Disorientation, unspecified; E86.0 Dehydration; N39.0 Urinary tract infection, site not specified; N28.9 Disorder of kidney and ureter, unspecified; I48.91 Unspecified atrial fibrillation; I10 Essential (primary) hypertension; E78.00 Pure hypercholesterolemia, unspecified; E11.9 Type 2 diabetes mellitus without complications; M79.7 Fibromyalgia; Z66 Do not resuscitate
CPT/HCPCS: 36416; 70450; 71045; 80053; 81001; 82948; 83735; 84443; 84484; 85025; 93005; 93010; 93880; 96360; 99223; 99239; 99285; J2405; J7030

== ENCOUNTER 2019-02-02 14:35 | Observation (INO) | payer MEDICARE ==
[2019-02-02 15:27] LABS: ABSOLUTE NEUTROPHIL COUNT 6.96; BASO % 0.2 % (0-6); EOS % 1.5 % (0-6); GRAN % 79.2 % (47-80); HEMATOCRIT 47.7 % (35.0-47.0); HEMOGLOBIN 15.6 gm/dl (11.6-16.0); LYMPH % 10.2 % (16-45); MEAN CELL VOLUME 87.5 fl (81-97); MEAN CORPUSCULAR HEMOGLOBIN 28.6 pg (27-33); MEAN CORPUSCULAR HGB CONC 32.7 g/dl (32-36); MEAN PLATELET VOLUME 8.9 fl (7.4-10.4); MONO % 8.9 % (0-9); PLATELET COUNT 256 K/uL (130-400); RED BLOOD COUNT 5.45 M/uL (3.80-5.40); RED CELL DISTRIBUTION WIDTH 13.2 % (11.5-14.5); WHITE BLOOD COUNT W/O DIFF 8.8 K/uL (4.2-12.2)
--- NOTE | 2019-02-02 15:29 | Emergency Department Record ---
History of Present Illness - General Chief complaint: Weakness Stated complaint: BILAT LEG WEAKNESS Time Seen by Provider: 02/02/19 14:57 Source: Patient, Family Mode of Arrival: EMS Limitations: No limitations - History of Present Illness Initial comments: The patient is here due to developing lower leg weakness and tremors while walking an hour ago. The patient has a LONG hx of generalized weakness, difficulty walking, and frequent falls. She normally walks with a walker with her holding her from behind with a gait belt. This afternoon she was walking to the bathroom with him and her legs became weak and were shaking L>R. The then helped her to her knees and she did not fall or hit her head. Due to the lower leg weakness they decided to call 911 and come to the ER. Presently the patient is feeling back to normal with no weakness or numbness. She had a long hx of bladder issues, tremors and weakness and is having trouble getting into a Neurologist. MD Complaint: Generalized weakness Onset/Timin -: Minutes(s) Location: LLE, RLE Improves with: None Worsens with: None Associated Symptoms: Denies other symptoms - [place] Coma Scale Eye Response: (4) Open spontaneously Motor Response: (6) Obeys commands Verbal Response: (5) Oriented Krista Total: 15 - Related Data Home Medications Medication Instructions Recorded Confirmed Last Taken B1/B2/Niacin/B12/Protease 1 each PO DAILY 02/02/19 02/02/19 Unknown [B-Complex with B-12 Tablet] Cetirizine HCl [Zyrtec] 10 mg PO DAILY 02/02/19 02/02/19 Unknown Fluoxetine HCl [Prozac] 40 mg PO DAILY 02/02/19 02/02/19 Unknown Linagliptin [Tradjenta] 5 mg PO DAILY 02/02/19 02/02/19 Unknown Losartan Potassium [Cozaar] 50 mg PO DAILY 02/02/19 02/02/19 Unknown Metoprolol Tartrate [Lopressor] 50 mg PO BID 02/02/19 02/02/19 Unknown Tolterodine Tartrate 4 mg PO DAILY 02/02/19 02/02/19 Unknown Vitamin A Palmitate/Vitamin D2 1 each PO DAILY 02/02/19 02/02/19 Unknown [Vitamins A & D Tablet] Vitamin E 100 unit PO DAILY 02/02/19 02/02/19 Unknown Allergies Allergy/AdvReac Type Severity Reaction Status Date / Time Carbapenems Allergy Unknown RASH Verified 02/02/19 14:49 Carbonic Anhydrase Inhibitors Allergy Unknown RASH Verified 02/02/19 14:49 Cephalosporins Allergy Unknown RASH Verified 02/02/19 14:49 Penicillins Allergy Unknown HIVES Verified 02/02/19 14:49 Sulfa (Sulfonamide Allergy Unknown HIVES Verified 02/02/19 14:49 Antibiotics) sulfamethoxazole Allergy Unknown HIVES Verified 02/02/19 14:49 Sulfonylureas Allergy Unknown HIVES Verified 02/02/19 14:49 Thiazides Allergy Unknown HIVES Verified 02/02/19 14:49 trimethoprim Allergy Unknown HIVES Verified 02/02/19 14:49 acetaminophen [From Vicodin] Allergy HIVES Verified 02/02/19 14:49 codeine Allergy HIVES Verified 02/02/19 14:49 hydrocodone bitartrate Allergy HIVES Verified 02/02/19 14:49 [From Vicodin] Travel Screening - Travel/Exposure Within Last 30 Days Have you traveled within the last 30 days?: No Review of Systems Constitutional: Reports: Malaise. Denies: Chills, Fever Eyes: Denies: Eye discharge ENT: Denies: Congestion Respiratory: Denies: Cough, Dyspnea Cardiovascular: Denies: Arrhythmia, Chest pain Endocrine: Reports: Fatigue Gastrointestinal: Denies: Nausea Genitourinary: Denies: Dysuria Musculoskeletal: Denies: Arthralgia Skin: Denies: Bruising Neurological: Denies: Confusion Past Medical History - SOCIAL HISTORY Smoking Status: Never smoker Alcohol Use: None Drug Use: None - RESPIRATORY Hx Respiratory Disorders: Yes Hx Asthma: Yes - CARDIOVASCULAR Hx Cardio Disorders: Yes Hx Hypertension: Yes Hx Irregular Heartbeat: Yes (AFIB with RVR, Eliquis) Comment:: high cholesterol - NEURO Hx Neuro Disorders: Yes Hx CVA: No Hx Dizziness: Yes Hx Parkinson's Disease: No Hx Seizures: No Hx Speech Problem: No Comment:: tremors, weakness - GI Hx GI Disorders: Yes Hx Diverticulitis: Yes Hx GI Bleed: Yes (04/2017) Hx Reflux: Yes Hx Ulcer: Yes (3 large ulcers) - Hx Genitourinary Disorders: Yes Hx UTI: Yes - ENDOCRINE Hx Endocrine Disorders: Yes Hx Diabetes: Yes (Type II) Hx Thyroid Disease: No - MUSCULOSKELETAL Hx Musculoskeletal Disorders: Yes Hx Arthritis: Yes Hx Fibromyalgia: Yes Hx Gout: No - PSYCH Hx Psych Problems: Yes Hx Anxiety: Yes Hx Depression: Yes Hx Suicide Attempt: No - HEMATOLOGY/ONCOLOGY Hx Hematology/Oncology Disorders: Yes Hx Anemia: Yes Hx Cancer: No Hx Unexplained Bleeding: No Hx Blood Transfusions: Yes (04/2017 5 units) Hx Blood Transfusion Reaction: No Family Medical History Any Significant Family History?: Yes Hx Cancer: Mother, Brother/Sister Hx Heart Disease: Father, Mother Hx HTN: Father, Mother Hx Resp Disorders: Mother Hx Stroke: Father, Mother, Brother/Sister Physical Exam - General General Appearance: Alert, Oriented x3, Cooperative, No acute distress - Head Head exam: Atraumatic, Normocephalic - Eye Eye exam: Normal appearance, PERRL - ENT Throat exam: Normal inspection. negative: Tonsillar erythema, Tonsillar exudate - Neck Neck exam: Normal inspection, Full ROM. negative: Tenderness - Respiratory Respiratory exam: Normal lung sounds bilaterally. negative: Respiratory distress - Cardiovascular Cardiovascular Exam: Regular rate, Normal rhythm, Normal heart sounds - GI/Abdominal GI/Abdominal exam: Soft, Normal bowel sounds. negative: Tenderness - Extremities Extremities exam: Normal inspection, Full ROM, Normal capillary refill. negat gladis: Pedal edema, Tenderness - Neurological Neurological exam: Abnormal gait (chronic.), Alert, Oriented X3. negative: Altered, Motor sensory deficit, Normal gait - Skin Skin exam: negative: Rash Course Vital Signs 02/02/19 14:45 Temperature 98.4 F Pulse Rate 55 L Respiratory 18 Rate Blood Pressure 178/94 Pulse Ox 93 L - Reevaluation(s) Reevaluation #1: 2nd EKG: no change from 1st. possible junctional rhythm vs 2:1 AV block. 02/02/19 17:04 Reevaluation #2: The patient is doing well at this time and denies any pain or discomfort. I did discuss the EKG's with the patient and family and did discuss the possibility of the patient being in a junctional vs 2:1 heart block. Due to that fact I would like to transfer her to [facility] a [place]iology consult but they presently have a nurse shortage and may not be able to take her tonight. Because of that I did discuss the case with Dr. Blanco and if they cannot take her tonight we will admit her here overnight for monitoring and transfer here there tomorrow. 02/02/19 17:31 Reevaluation #3: We did contact [facility] again and they again state they will not be able to take the patient there tonight. We will admit her overnight and will transfer there tomorrow. 02/02/19 18:17 Medical Decision Making - Data Complexity MDM Data: Labs Ordered and/or Reviewed, X-Ray Ordered and/or Reviewed, EKG Ordered and/or Reviewed - Lab Data Result diagrams: 02/02/19 15:20 02/02/19 15:20 - EKG Data -: EKG Interpreted by Me EKG: Abnormal EKG (possible Junctional rhythm vs 2:1 AV block. Nonspecific T changes anterolateral. ) - Radiology Data Radiology results: Report reviewed (Head CT: Neg for acute changes.) Disposition Disposition: Admit Clinical Impression: Bradycardia Disposition: Still a Patient at [facility] Decision to Admit: Admit from ER Decision to Admit Date: 02/02/19 Decision to Admit Time: 18:18 Accepting Physician: Bella Time Discussed w/Accepting Physician: 18:18 Condition: (2) Stable Forms: Patient Portal Access Time of Disposition: 18:18 Quality - Quality Measures Quality Measures: N/A - Blood Pressure Screening View Details: Yes Does Patient Have Any of the Following: Active Dx of HTN Blood Pressure Classification: Hypertensive Reading Systolic Measurement: 178 Diastolic Measurement: 94 Screening for High Blood Pressure: Patient Exclusion, Hx of HTN [G9744]
[2019-02-02 15:38] LABS: BLOOD UREA NITROGEN 20 mg/dL (8-23); CREATININE 1.3 mg/dL (0.5-0.9); EST GLOMERULAR FILTRATION RATE 43 mL/min
[2019-02-02 15:39] LABS: TOTAL PROTEIN 7.4 g/dL (6.6-8.7)
[2019-02-02 15:41] LABS: GLUCOSE,RANDOM 135 mg/dL (74-109)
[2019-02-02 15:44] LABS: ALB/GLOB RATIO 1.3 (1.1-1.8); ALBUMIN 4.2 g/dL (4.0-5.0); ALKALINE PHOSPHATASE 115 U/L (35-104); ALT/SGPT 19 U/L (<33); AST/SGOT 18 U/L (10.0-35.0)
[2019-02-02 15:50] LABS: INR 1.1; PARTIAL THROMBOPLASTIN TIME 30.6 SECONDS (24.5-39.1); PROTHROMBIN TIME (PATIENT) 11.4 SECONDS (9.5-12.1)
--- NOTE | 2019-02-02 16:10 | CT SCAN REPORT ---
EXAMINATION: CT Head without IV Contrast EXAM DATE: 02/02/2019 3:53 PM TECHNIQUE: Standard protocol CT images of the head were obtained without intravenous contrast. Watts l and sagittal reconstructed images were created. INDICATION: weakness COMPARISON: CT head dated 09/22/2017. HAND DOMINANCE: Unknown. ENCOUNTER: Not applicable FINDINGS: 1. There are patchy areas of hypodensity in the periventricular and in the subcortical white matter . There are no other suspicious areas of abnormal brain attenuation. No acute intracranial hemorrhage is noted. 2. The ventricles, sulci, and the cisterns are prominent but consistent with the patient's age. No mass effect, midline shift nor extra-axial fluid collections are noted. 3. No skull abnormalities are noted. 4. The paranasal sinuses are well aerated. The mastoid air cells are well aerated. 5. There is calcified atherosclerotic plaque involving the cavernous internal carotid arteries. IMPRESSION: 1. No evidence for an acute intracranial process. 2. Chronic small vessel ischemic change of the white matter. 3. Age-appropriate brain atrophy. Dictated by: Junaid Tobin MD on 02/02/2019 4:03 PM. .
--- NOTE | 2019-02-02 18:35 | Emergency Department Record ---
History of Present Illness - General Chief complaint: Weakness Stated complaint: BILAT LEG WEAKNESS Time Seen by Provider: 02/02/19 14:57 Source: Patient, Family Mode of Arrival: EMS Limitations: No limitations - History of Present Illness MD Complaint: Generalized weakness Onset/Timin -: Minutes(s) Location: LLE, RLE Improves with: None Worsens with: None Associated Symptoms: Denies other symptoms - Krista Coma Scale Eye Response: (4) Open spontaneously Motor Response: (6) Obeys commands Verbal Response: (5) Oriented Krista Total: 15 - Related Data Home Medications Medication Instructions Recorded Confirmed Last Taken B1/B2/Niacin/B12/Protease 1 each PO DAILY 02/02/19 02/02/19 Unknown [B-Complex with B-12 Tablet] Cetirizine HCl [Zyrtec] 10 mg PO DAILY 02/02/19 02/02/19 Unknown Fluoxetine HCl [Prozac] 40 mg PO DAILY 02/02/19 02/02/19 Unknown Linagliptin [Tradjenta] 5 mg PO DAILY 02/02/19 02/02/19 Unknown Losartan Potassium [Cozaar] 50 mg PO DAILY 02/02/19 02/02/19 Unknown Metoprolol Tartrate [Lopressor] 50 mg PO BID 02/02/19 02/02/19 Unknown Tolterodine Tartrate 4 mg PO DAILY 02/02/19 02/02/19 Unknown Vitamin A Palmitate/Vitamin D2 1 each PO DAILY 02/02/19 02/02/19 Unknown [Vitamins A & D Tablet] Vitamin E 100 unit PO DAILY 02/02/19 02/02/19 Unknown Allergies Allergy/AdvReac Type Severity Reaction Status Date / Time Carbapenems Allergy Unknown RASH Verified 02/02/19 14:49 Carbonic Anhydrase Inhibitors Allergy Unknown RASH Verified 02/02/19 14:49 Cephalosporins Allergy Unknown RASH Verified 02/02/19 14:49 Penicillins Allergy Unknown HIVES Verified 02/02/19 14:49 Sulfa (Sulfonamide Allergy Unknown HIVES Verified 02/02/19 14:49 Antibiotics) sulfamethoxazole Allergy Unknown HIVES Verified 02/02/19 14:49 Sulfonylureas Allergy Unknown HIVES Verified 02/02/19 14:49 Thiazides Allergy Unknown HIVES Verified 02/02/19 14:49 trimethoprim Allergy Unknown HIVES Verified 02/02/19 14:49 acetaminophen [From Vicodin] Allergy HIVES Verified 02/02/19 14:49 codeine Allergy HIVES Verified 02/02/19 14:49 hydrocodone bitartrate Allergy HIVES Verified 02/02/19 14:49 [From Vicodin] Travel Screening - Travel/Exposure Within Last 30 Days Have you traveled within the last 30 days?: No Review of Systems Constitutional: Reports: Malaise. Denies: Chills, Fever Eyes: Denies: Eye discharge ENT: Denies: Congestion Respiratory: Denies: Cough, Dyspnea Cardiovascular: Denies: Arrhythmia, Chest pain Endocrine: Reports: Fatigue Gastrointestinal: Denies: Nausea Genitourinary: Denies: Dysuria Musculoskeletal: Denies: Arthralgia Skin: Denies: Bruising Neurological: Denies: Confusion Past Medical History - SOCIAL HISTORY Smoking Status: Never smoker Alcohol Use: None Drug Use: None - RESPIRATORY Hx Respiratory Disorders: Yes Hx Asthma: Yes - CARDIOVASCULAR Hx Cardio Disorders: Yes Hx Hypertension: Yes Hx Irregular Heartbeat: Yes (AFIB with RVR, Eliquis) Comment:: high cholesterol - NEURO Hx Neuro Disorders: Yes Hx CVA: No Hx Dizziness: Yes Hx Parkinson's Disease: No Hx Seizures: No Hx Speech Problem: No Comment:: tremors, weakness - GI Hx GI Disorders: Yes Hx Diverticulitis: Yes Hx GI Bleed: Yes (04/2017) Hx Reflux: Yes Hx Ulcer: Yes (3 large ulcers) - Hx Genitourinary Disorders: Yes Hx UTI: Yes - ENDOCRINE Hx Endocrine Disorders: Yes Hx Diabetes: Yes (Type II) Hx Thyroid Disease: No - MUSCULOSKELETAL Hx Musculoskeletal Disorders: Yes Hx Arthritis: Yes Hx Fibromyalgia: Yes Hx Gout: No - PSYCH Hx Psych Problems: Yes Hx Anxiety: Yes Hx Depression: Yes Hx Suicide Attempt: No - HEMATOLOGY/ONCOLOGY Hx Hematology/Oncology Disorders: Yes Hx Anemia: Yes Hx Cancer: No Hx Unexplained Bleeding: No Hx Blood Transfusions: Yes (04/2017 5 units) Hx Blood Transfusion Reaction: No Family Medical History Any Significant Family History?: Yes Hx Cancer: Mother, Brother/Sister Hx Heart Disease: Father, Mother Hx HTN: Father, Mother Hx Resp Disorders: Mother Hx Stroke: Father, Mother, Brother/Sister Physical Exam - General Limitations: No limitations - Neurological Neurological exam: negative: Motor sensory deficit (The patient's sensory exam is normal and equal to both lower extremities. Her motor exam is 4+/5 and equal bilaterally to both lower extremities and she feels her strength is at her baseline. She is moving both legs normally. ) Course Vital Signs 02/02/19 02/02/19 02/02/19 14:45 16:53 17:49 Temperature 98.4 F Pulse Rate 55 L Pulse Rate [ 55 L 53 L [employer]lasses ] Respiratory 18 18 18 Rate Blood Pressure 178/94 Blood Pressure 157/75 171/84 [Left Arm] Pulse Ox 93 L 94 L 96 Medical Decision Making - Lab Data Result diagrams: 02/02/19 15:20 02/02/19 15:20 Lab Results 02/02/19 02/02/19 02/02/19 Range/Units 15:20 15:20 15:20 WBC 8.8 (4.2-12.2) K/uL RBC 5.45 H (3.80-5.40) M/uL Hgb 15.6 (11.6-16.0) gm/dl Hct 47.7 H (35.0-47.0) % MCV 87.5 (81-97) fl MCH 28.6 (27-33) pg MCHC 32.7 (32-36) g/dl RDW 13.2 (11.5-14.5) % Plt Count 256 (130-400) K/uL MPV 8.9 (7.4-10.4) fl Gran % 79.2 (47-80) % Lymphocytes % 10.2 L (16-45) % Monocytes % 8.9 (0-9) % Eosinophils % 1.5 (0-6) % Basophils % 0.2 (0-6) % Absolute Neutrophils 6.96 PT 11.4 (9.5-12.1) SECONDS INR 1.1 APTT 30.6 (24.5-39.1) SECONDS Sodium 137 (136-145) mmol/L Potassium 4.7 H (3.4-4.5) mmol/L Chloride 101 (98-107) mmol/L Carbon Dioxide 24.0 (22-29) mmol/L Anion Gap 12.0 (7-16) BUN 20 (8-23) mg/dL Creatinine 1.3 H (0.5-0.9) mg/dL Estimated GFR 43 mL/min Random Glucose 135 H (74-109) mg/dL Calcium 10.4 H (8.8-10.2) mg/dL Total Bilirubin 0.50 (0.2-1.0) mg/dL AST 18 (10.0-35.0) U/L ALT 19 (<33) U/L Alkaline Phosphatase 115 H (35-104) U/L Troponin T < 0.010 (0-0.010) ng/mL Total Protein 7.4 (6.6-8.7) g/dL Albumin 4.2 (4.0-5.0) g/dL Globulin 3.2 (1.4-4.8) gm/dL Albumin/Globulin Ratio 1.3 (1.1-1.8) TSH 1.00 (0.270-4.20) uIU/mL Disposition Clinical Impression: Bradycardia Disposition: Still a Patient at [facility] Condition: (2) Stable Forms: Patient Portal Access Quality - Quality Measures Quality Measures: N/A - Blood Pressure Screening View Details: Yes Does Patient Have Any of the Following: Active Dx of HTN Blood Pressure Classification: Hypertensive Reading Systolic Measurement: 178 Diastolic Measurement: 94 Screening for High Blood Pressure: Patient Exclusion, Hx of HTN [G9744]
[2019-02-02] MEDS ORDERED: FLU VAC QS 2019-20 (INPT, 6MO+) 60MCG/0.5ML IM ONE (19:13)
--- NOTE | 2019-02-02 21:14 | History & Physical ---
History of Present Illness - Date of Service Date of Service for History & Physical: 02/03/19 - History of Present Illness Admitting Diagnosis: 1. Acute Bradycardia with possible Heart Block. History of Present Illness: Mrs. Pineda is a 69 y.o. female who came to the Ed with complaint of weakness and fall at home. The patient says that her was helping her up with a michael and says "I began shaking and shimming and I couldn't control it." The patient denies passing out, headaches, visual changes or chest pain. Her and daughter note that she has had progressive shaking difficulty walking and falls for the past several months. She has had home physical therapy and it was determined that her strength was intact and that her symptoms seem to be more waxing and waning. A Neurology consult was recommended but her daughter says that it is not until April 2019. The patient uses a four legged walker at home. On presentation to the ED the patient was noted to be Bradycardic with heart rate in the 50s but otherwise labs and CT of the head revealed no abnormalities. The ED considered transfer to [facility] but was unable to facilitate yesterday evening. The patient was admitted for observation and possible transfer this morning. I spoke to and reviewed the patient's presentation and ECG with Bank Consultant - Dr. Ronn Hoffmann last evening and we both agreed that there was no acute findings on ECG. She does have bradycardia which is asymptomatic but no acute ST-T changes. On evaluation this morning the patient is alert, and here orientation waxes and wanes. She has no complaint of chest pain, shortness of breath dizziness or weakness. Travel Screening - Travel/Exposure Within Last 30 Days Have you traveled within the last 30 days?: No Review of Systems Constitutional: Reports: Malaise. Denies: Chills, Fever Eyes: Denies: Eye discharge ENT: Denies: Congestion Respiratory: Denies: Cough, Dyspnea Cardiovascular: Denies: Arrhythmia, Chest pain Endocrine: Reports: Fatigue Gastrointestinal: Denies: Nausea Genitourinary: Denies: Dysuria Musculoskeletal: Denies: Arthralgia Skin: Denies: Bruising Neurological: Denies: Confusion Past Medical History - SOCIAL HISTORY Smoking Status: Never smoker Alcohol Use: None Drug Use: None - RESPIRATORY Hx Respiratory Disorders: Yes Hx Asthma: Yes - CARDIOVASCULAR Hx Cardio Disorders: Yes Hx Hypertension: Yes Hx Irregular Heartbeat: Yes (AFIB with RVR, Eliquis) Comment:: high cholesterol - NEURO Hx Neuro Disorders: Yes Hx CVA: No Hx Dizziness: Yes Hx Parkinson's Disease: No Hx Seizures: No Hx Speech Problem: No Comment:: tremors, weakness - GI Hx GI Disorders: Yes Hx Diverticulitis: Yes Hx GI Bleed: Yes (04/2017) Hx Reflux: Yes Hx Ulcer: Yes (3 large ulcers) - Hx Genitourinary Disorders: Yes Hx UTI: Yes - ENDOCRINE Hx Endocrine Disorders: Yes Hx Diabetes: Yes (Type II) Hx Thyroid Disease: No - MUSCULOSKELETAL Hx Musculoskeletal Disorders: Yes Hx Arthritis: Yes Hx Fibromyalgia: Yes Hx Gout: No - PSYCH Hx Psych Problems: Yes Hx Anxiety: Yes Hx Depression: Yes Hx Suicide Attempt: No - HEMATOLOGY/ONCOLOGY Hx Hematology/Oncology Disorders: Yes Hx Anemia: Yes Hx Cancer: No Hx Unexplained Bleeding: No Hx Blood Transfusions: Yes (04/2017 5 units) Hx Blood Transfusion Reaction: No Family Medical History Any Significant Family History?: Yes Hx Cancer: Mother, Brother/Sister Hx Heart Disease: Father, Mother Hx HTN: Father, Mother Hx Resp Disorders: Mother Hx Stroke: Father, Mother, Brother/Sister H&P Meds/Allergies - Allergies Allergies: Allergies Allergy/AdvReac Type Severity Reaction Status Date / Time Carbapenems Allergy Unknown RASH Verified 02/02/19 14:49 Carbonic Anhydrase Inhibitors Allergy Unknown RASH Verified 02/02/19 14:49 Cephalosporins Allergy Unknown RASH Verified 02/02/19 14:49 Penicillins Allergy Unknown HIVES Verified 02/02/19 14:49 Sulfa (Sulfonamide Allergy Unknown HIVES Verified 02/02/19 14:49 Antibiotics) sulfamethoxazole Allergy Unknown HIVES Verified 02/02/19 14:49 Sulfonylureas Allergy Unknown HIVES Verified 02/02/19 14:49 Thiazides Allergy Unknown HIVES Verified 02/02/19 14:49 trimethoprim Allergy Unknown HIVES Verified 02/02/19 14:49 acetaminophen [From Vicodin] Allergy HIVES Verified 02/02/19 14:49 codeine Allergy HIVES Verified 02/02/19 14:49 hydrocodone bitartrate Allergy HIVES Verified 02/02/19 14:49 [From Vicodin] - Home Medications Home Medications Medication Instructions Recorded Confirmed Last Taken B1/B2/Niacin/B12/Protease 1 each PO DAILY 02/02/19 02/02/19 Unknown [B-Complex with B-12 Tablet] Cetirizine HCl [Zyrtec] 10 mg PO DAILY 02/02/19 02/02/19 Unknown Fluoxetine HCl [Prozac] 40 mg PO DAILY 02/02/19 02/02/19 Unknown Linagliptin [Tradjenta] 5 mg PO DAILY 02/02/19 02/02/19 Unknown Losartan Potassium [Cozaar] 50 mg PO DAILY 02/02/19 02/02/19 Unknown Metoprolol Tartrate [Lopressor] 50 mg PO BID 02/02/19 02/02/19 Unknown Tolterodine Tartrate 4 mg PO DAILY 02/02/19 02/02/19 Unknown Vitamin A Palmitate/Vitamin D2 1 each PO DAILY 02/02/19 02/02/19 Unknown [Vitamins A & D Tablet] Vitamin E 100 unit PO DAILY 02/02/19 02/02/19 Unknown - Active Medications Active Medications: Current Medications Apixaban (Eliquis) 5 mg PO BID [facility]MA[facility] Atorvastatin Calcium (Lipitor) 80 mg PO QHS [facility]MAINE Fluoxetine HCl (Prozac) 40 mg PO DAILY [facility]MA[facility] Loratadine (Claritin) 10 mg PO DAILY CHARMAINE Losartan Potassium (Cozaar) 50 mg PO DAILY CHARMAINE Non-Formulary Medication (Linagliptin [Tradjenta]) 5 mg PO DAILY [facility]MAINE Non-Formulary Medication (Tolterodine Tartrate [Tolterodine Tartrate]) 4 mg PO DAILY [facility] Physical Exam - Vital Signs Vital Signs: Vital Signs - Last 24 Hrs Temp Pulse Pulse Pulse Resp BP BP 02/02/19 18:55 98.1 F 56 L 16 170/75 02/02/19 17:49 53 L 18 171/84 02/02/19 16:53 55 L 18 157/75 02/02/19 14:45 98.4 F 55 L 18 178/94 Pulse Ox 02/02/19 18:55 93 L 02/02/19 17:49 96 02/02/19 16:53 94 L 02/02/19 14:45 93 L - General General Appearance: Alert, Oriented x3, Cooperative, No acute distress Limitations: No limitations - Head Head exam: Atraumatic, Normocephalic - Eye Eye exam: Normal appearance, PERRL - ENT Throat exam: Normal inspection. negative: Tonsillar erythema, Tonsillar exudate - Neck Neck exam: Normal inspection, Full ROM. negative: Tenderness - Respiratory Respiratory exam: Normal lung sounds bilaterally. negative: Respiratory distress - Cardiovascular Cardiovascular Exam: Regular rate, Normal rhythm, Normal heart sounds - GI/Abdominal GI/Abdominal exam: Soft, Normal bowel sounds. negative: Tenderness - Extremities Extremities exam: Normal inspection, Full ROM, Normal capillary refill. negative: Pedal edema, Tenderness - Neurological Neurological exam: negative: Motor sensory deficit (The patient's sensory exam is normal and equal to both lower extremities. Her motor exam is 4+/5 and equal bilaterally to both lower extremities and she feels her strength is at her baseline. She is moving both legs normally. ) - Skin Skin exam: negative: Rash Results - Labs Result Diagrams: 02/02/19 15:20 02/02/19 15:20 Labs Last 24 Hours: Laboratory Results - last 24 hr 02/02/19 02/02/19 02/02/19 15:20 15:20 15:20 WBC 8.8 RBC 5.45 H Hgb 15.6 Hct 47.7 H MCV 87.5 MCH 28.6 MCHC 32.7 RDW 13.2 Plt Count 256 MPV 8.9 Gran % 79.2 Lymphocytes % 10.2 L Monocytes % 8.9 Eosinophils % 1.5 Basophils % 0.2 Absolute Neutrophils 6.96 PT 11.4 INR 1.1 APTT 30.6 Sodium 137 Potassium 4.7 H Chloride 101 Carbon Dioxide 24.0 Anion Gap 12.0 BUN 20 Creatinine 1.3 H Estimated GFR 43 Random Glucose 135 H Calcium 10.4 H Total Bilirubin 0.50 AST 18 ALT 19 Alkaline Phosphatase 115 H Troponin T < 0.010 Total Protein 7.4 Albumin 4.2 Globulin 3.2 Albumin/Globulin Ratio 1.3 TSH 1.00 VTE H&P Assessment - Risk for VTE Risk for VTE: Yes Risk Level: High Risk Assessment Date: 02/03/19 Risk Assessment Time: 09:39 VTE Orders Placed or Will Be Placed: Yes Plan - Detailed Diagnosis and Plan (1) Bradycardia Current Visit: Yes Status: Acute Base Code: R00.1 - BRADYCARDIA, UNSPECIFIED Comment: 02/03/19: - ECG sowing bradycardia with HR 54, normal Qtc [address]-T changes. - Overnight the patient had no acute findings on telemetry. - Metoprolol was held due to bradycardia. - Troponins negative x 3 and electrolytes WNL. - Discussed presentation with Cardiology who agree that there is no acute intervention needed at this time. The patient is scheduled to see her Bank Consultant at [facility] on Feb 15. (2) Progressive focal motor weakness Current Visit: Yes Status: Acute Base Code: R53.1 - WEAKNESS Comment: 02/03/19: - Patient has intermittent weakness, memory and motor deficits. - CT head showing chronic vascualr changes and age appropriate atrophy. - Pending referral to Neurology for further workup. - Continue to use Posy and walker at home to prevent falls. (3) HTN (hypertension) Current Visit: Yes Status: Acute Base Code: I10 - ESSENTIAL (PRIMARY) HYPERTENSION Comment: 02/03/19: - Resume Losartan 25mg daily. (4) Diabetes mellitus, type II Current Visit: Yes Status: Acute Base Code: E11.9 - TYPE 2 DIABETES MELLITUS WITHOUT COMPLICATIONS Comment: 02/03/19: - Resume Tradjenta 5mg. Family will have to bring in since not on formulary. - Serum glucose was 135. (5) History of atrial fibrillation Current Visit: Yes Status: Acute Base Code: Z86.79 - PERSONAL HISTORY OF OTHER DISEASES OF THE CIRCULATORY SYSTEM Comment: 02/03/19: - On Metoprolol 50mg daily. - Held due to bradycardia. Patient to resume at 25mg on returning home. - Anticoagulated on Eliquis 5mg BID. (6) At risk for deep venous thrombosis Current Visit: No Status: Acute Base Code: Z91.89 - OTH PERSONAL RISK FACTORS, NOT ELSEWHERE CLASSIFIED Comment: 02/03/19: -Hx of chronic atrial fibrillation. -Eliquis 5mg bid for anticoagulation (7) Patient is full code Current Visit: Yes Status: Acute Base Code: Z78.9 - OTHER SPECIFIED HEALTH STATUS Comment: 02/03/19: - The patient is full code.
[2019-02-02] MEDS ORDERED: APIXABAN 5MG TABLET PO SCH (22:00)
--- NOTE | 2019-02-03 09:56 | Discharge Summary ---
Providers Discharge Summary Date: 02/03/19 Date of admission: 02/02/19 18:47 Attending physician: ROLLY ARRIOLA Primary care physician: WALT JUNG Physical Exam - Vital Signs Vital Signs: Vital Signs - Last 24 Hrs Temp Pulse Pulse Pulse Resp BP BP 02/03/19 08:28 55 L 18 02/03/19 08:00 97.8 F 70 18 184/76 02/03/19 05:35 97.4 F L 55 L 16 148/100 02/03/19 01:45 97.6 F 55 L 16 143/87 02/02/19 21:00 56 L 16 02/02/19 20:43 98.5 F 56 L 16 155/77 02/02/19 18:55 98.1 F 56 L 16 170/75 02/02/19 17:49 53 L 18 171/84 02/02/19 16:53 55 L 18 157/75 02/02/19 14:45 98.4 F 55 L 18 178/94 Pulse Ox 02/03/19 08:28 02/03/19 08:00 95 02/03/19 05:35 96 02/03/19 01:45 95 02/02/19 21:00 02/02/19 20:43 94 L 02/02/19 18:55 93 L 02/02/19 17:49 96 02/02/19 16:53 94 L 02/02/19 14:45 93 L - General General Appearance: Alert, Oriented x3, Cooperative, No acute distress Limitations: No limitations - Head Head exam: Atraumatic, Normocephalic - Eye Eye exam: Normal appearance, PERRL - ENT Throat exam: Normal inspection. negative: Tonsillar erythema, Tonsillar exudate - Neck Neck exam: Normal inspection, Full ROM. negative: Tenderness - Respiratory Respiratory exam: Normal lung sounds bilaterally. negative: Respiratory distress - Cardiovascular Cardiovascular Exam: Regular rate, Normal rhythm, Normal heart sounds, Bradycardia (apprx 58 bpm) Peripheral Pulses: 3+: Radial (R), Radial (L), Dorsalis Pedis (R), Dorsalis Pedis (L) - GI/Abdominal GI/Abdominal exam: Soft, Normal bowel sounds. negative: Tenderness - Extremities Extremities exam: Normal inspection, Full ROM, Normal capillary refill. negative: Pedal edema, Tenderness - Neurological Neurological exam: Alert, CN II-XII intact, Motor sensory deficit (The patient's sensory exam is normal and equal to both lower extremities. Her motor exam is 4+/5 and equal bilaterally to both lower extremities and she feels her strength is at her baseline. She is moving both legs normally. ), Other (memory deficits ) - Skin Skin exam: negative: Rash Hospitalization - Hospitalization Admission Diagnosis: 1. Acute Bradycardia with possible Heart Block. - Problem List/Discharge Diagnosis (1) Bradycardia Current Visit: Yes Status: Acute Base Code: R00.1 - BRADYCARDIA, UNSPECIFIED Comment: 02/03/19: - ECG sowing bradycardia with HR 54, normal Qtc [address]-T changes. - Overnight the patient had no acute findings on telemetry. - Metoprolol was held due to bradycardia. - Troponins negative x 3 and electrolytes WNL. - Discussed presentation with Cardiology who agree that there is no acute intervention needed at this time. The patient is scheduled to see her Bander at [facility] on Feb 15. (2) Progressive focal motor weakness Current Visit: Yes Status: Acute Base Code: R53.1 - WEAKNESS Comment: 02/03/19: - Patient has intermittent weakness, memory and motor deficits. - CT head showing chronic vascualr changes and age appropriate atrophy. - Pending referral to Neurology for further workup. - Continue to use Posy and walker at home to prevent falls. (3) HTN (hypertension) Current Visit: Yes Status: Acute Base Code: I10 - ESSENTIAL (PRIMARY) HYPERTENSION Comment: 02/03/19: - Resume Losartan 25mg daily. (4) Diabetes mellitus, type II Current Visit: Yes Status: Acute Base Code: E11.9 - TYPE 2 DIABETES MELLITUS WITHOUT COMPLICATIONS Comment: 02/03/19: - Resume Tradjenta 5mg. Family will have to bring in since not on formulary. - Serum glucose was 135. (5) History of atrial fibrillation Current Visit: Yes Status: Acute Base Code: Z86.79 - PERSONAL HISTORY OF OTHER DISEASES OF THE CIRCULATORY SYSTEM Comment: 02/03/19: - On Metoprolol 50mg daily. - Held due to bradycardia. Patient to resume at 25mg on returning home. - Anticoagulated on Eliquis 5mg BID. (6) At risk for deep venous thrombosis Current Visit: No Status: Acute Base Code: Z91.89 - OTH PERSONAL RISK FACTORS, NOT ELSEWHERE CLASSIFIED Comment: 02/03/19: -Hx of chronic atrial fibrillation. -Eliquis 5mg bid for anticoagulation (7) Patient is full code Current Visit: Yes Status: Acute Base Code: Z78.9 - OTHER SPECIFIED HEALTH STATUS Comment: 02/03/19: - The patient is full code. - Hospitalization Course Hospital Course: Mrs. Knight is a 69 y.o. female who came to the Ed with complaint of weakness and fall at home. The patient says that her was helping her up with a michael and says "I began shaking and shimming and I couldn't control it." The patient denies passing out, headaches, visual changes or chest pain. Her and daughter note that she has had progressive shaking difficulty walking and falls for the past several months. She has had home physical therapy and it was determined that her strength was intact and that her symptoms seem to be more waxing and waning. A Neurology consult was recommended but her daughter says that it is not until April 2019. The patient uses a four legged walker at home. On presentation to the ED the patient was noted to be Bradycardic with heart rate in the 50s but otherwise labs and CT of the head revealed no abnormalities. The ED considered transfer to [facility] but was unable to facilitate yesterday evening. The patient was admitted for observation and possible transfer this morning. I spoke to and reviewed the patient's presentation and ECG with Bander - Dr. Ronn Hoffmann last evening and we both agreed that there was no acute findings on ECG. She does have bradycardia which is asymptomatic but no acute ST-T changes. On evaluation this morning the patient is alert, and here orientation waxes and wanes. She has no complaint of chest pain, shortness of breath dizziness or weakness. Plan is for discharge home with Cardiology follow up as scheduled. Neurology referral for motor symptoms and in the meantime fall precautions and PT arranged by PCP. Procedures: Imaging and X-Rays 02/02/19 15:14 HEAD WO CONTRAST [CT] Stat Cardiology Procedures 02/02/19 15:14 EKG NOW 02/02/19 16:13 EKG NOW 02/02/19 18:43 Licensed Loan Officer .Continuous EKG QDX2@0600 Abnormal Labs: Abnormal Lab Results 02/02/19 02/02/19 Range/Units 15:20 15:20 RBC 5.45 H (3.80-5.40) M/uL Hct 47.7 H (35.0-47.0) % Lymphocytes % 10.2 L (16-45) % Potassium 4.7 H (3.4-4.5) mmol/L Creatinine 1.3 H (0.5-0.9) mg/dL Random Glucose 135 H (74-109) mg/dL Calcium 10.4 H (8.8-10.2) mg/dL Alkaline Phosphatase 115 H (35-104) U/L Condition at Discharge: (2) Stable Discharge Medications - Discharge Medications Prescriptions: Metoprolol Tartrate [Lopressor] 25 mg PO BID 30 Days tablet Home Medications: Ambulatory Orders Rosuvastatin Calcium [Crestor] 20 mg PO QHS 09/23/14 [Last Taken Unknown] Apixaban [Eliquis] 5 mg PO BID 09/13/17 [Last Taken 09/22/17] B1/B2/Niacin/B12/Protease [B-Complex with B-12 Tablet] 1 each PO DAILY 02/02/19 [Last Taken Unknown] Cetirizine HCl [Zyrtec] 10 mg PO DAILY 02/02/19 [Last Taken Unknown] Fluoxetine HCl [Prozac] 40 mg PO DAILY 02/02/19 [Last Taken Unknown] Linagliptin [Tradjenta] 5 mg PO DAILY 02/02/19 [Last Taken Unknown] Losartan Potassium [Cozaar] 50 mg PO DAILY 02/02/19 [Last Taken Unknown] Tolterodine Tartrate 4 mg PO DAILY 02/02/19 [Last Taken Unknown] Vitamin A Palmitate/Vitamin D2 [Vitamins A & D Tablet] 1 each PO DAILY 02/02/19 [Last Taken Unknown] Vitamin E 100 unit PO DAILY 02/02/19 [Last Taken Unknown] Metoprolol Tartrate [Lopressor] 25 mg PO BID 30 Days tablet 02/03/19 [Last Taken Unknown] Discharge Plan - Discharge Instructions Additional Instructions: Reduce your dose of Metoprolol to 25mg BID. Resume all other home medications as prescribed. Follow up with your Bander at [facility] as scheduled on Feb 15. Discuss with PCP getting into Neurology sooner. Continue to use Michael and walker at home to prevent falls. Quality Measures - Quality Measures Quality Measures: Advance Directives, Documentation of Current Medications in Medical Record, Elder Maltreatment Screen and Follow-Up Plan, Screening for High Blood Pressure and F/U Documented - Current Medications Quality Measure: Measure #130: Documentation of Current Medications Documentation of Current Medications: <Current Medications Documented/Reviewed> [[id number]] - Blood Pressure Screening Quality Measure: Screening for High Blood Pressure and Follow-Up Documented Does Patient Have Any of the Following: Active Dx of HTN Blood Pressure Classification: Hypertensive Reading Systolic Measurement: 178 Diastolic Measurement: 94 Screening for High Blood Pressure: Patient Exclusion, Hx of HTN [[id number]] - Advance Directives Quality Measure: Measure #47: Care Plan Advance Directives Established: No Advance Directives Information Provided To Patient: No Advance Directives on File: No Living Will: No Power of Cad Technician: Yes Power of Cad Technician Name: STU KNIGHT V Advance Care Planning: <Care Plan/Decision Maker Not Decided; Discussed & Documented> [[id number]] - Elder Abuse Suspicion Index Screening: Elder Abuse Suspicion Index Screening Rely on people for bathing, dressing, shopping, banking, etc: Yes Prevented from getting food, clothes, medication, etc: No Made to feel shamed or threatened by someone: No Forced to sign papers or use money against will: No Feel afraid, touched in ways not wanted or hurt physically: No Poor eye contact, withdrawn, malnourished, cuts or bruises: No Screening Result: Negative result EASI Reference Information: Jose SALAZAR, Cinthia C, Pat D, Moises M.Development and validation of a tool to assist physicians identification of elder abuse: The Elder Abuse Suspicion Index (EASI ). Journal of Elder Abuse and Neglect, 2008; 20 (3): 276-300. - Elder Maltreatment Screen Quality Measures: Elder Maltreatment Screen and Follow-Up Plan Elder Maltreatment Screen: <Negative, No Follow-Up Plan Required> [G8734]
[2019-02-03] MEDS ORDERED: LINAGLIPTIN 5 MG PO SCH (10:00)
[2019-02-03] MEDS ORDERED: TOLTERODINE TARTRATE 4 MG PO SCH (10:00)
[2019-02-03] MEDS ORDERED: FLUOXETINE HCL 20 MG CAPSULE PO SCH (10:00)
[2019-02-03] MEDS ORDERED: ATORVASTATIN 20 MG TABLET PO SCH (10:00)
[2019-02-03] MEDS ORDERED: LORATADINE 10 MG TABLET PO SCH (10:00)
[2019-02-03] MEDS ORDERED: LOSARTAN POTASSIUM 25 MG TABLET PO SCH (10:00)
== END 2019-02-03 11:17 | disposition home or self-care (01) ==
LOC: ER 14:35 → MEDSURG 18:47
PROVIDERS: ADMIT Internal Medicine; ATTEND Internal Medicine
DX: R00.1 Bradycardia, unspecified (principal); I48.91 Unspecified atrial fibrillation; Z79.01 Long term (current) use of anticoagulants; I10 Essential (primary) hypertension; E78.00 Pure hypercholesterolemia, unspecified; E11.9 Type 2 diabetes mellitus without complications; K21.9 Gastro-esophageal reflux disease without esophagitis; J45.909 Unspecified asthma, uncomplicated; R25.1 Tremor, unspecified; D64.9 Anemia, unspecified; M79.7 Fibromyalgia; Z91.81 History of falling; R26.2 Difficulty in walking, not elsewhere classified; Z23 Encounter for immunization
CPT/HCPCS: 85025; 85730; 85610; 80053; 84443; 84484 ×2; 70450; 93005 ×2; 93010; 90686; G0378 ×2; J3490; 99220; 99285